=== PATIENT | female | born 1965 ===

== ENCOUNTER 2017-11-25 15:29 | Inpatient (IN) | payer BC ==
--- NOTE | 2017-11-25 16:46 | ED PDOC ---
Arrival/HPI - General Chief Complaint: Shortness Of Breath Time Seen by Provider: 11/25/17 15:35 Historian: Patient - History of Present Illness Narrative History of Present Illness (Text): 11/25/17 16:36 Pt is a 52 year old female with a pmh of asthma, and copd with a significant h/ o sob and chest pain for many weeks. Pt was seen by loader unloader Bruce Francisco today for a VQ scan, LE doppler and chest x-ray which were unremarkable despite continued tachycardia and tachypnea. Was instructed to go to the Emergency department for immediate assessment and echocardiogram. Pt was last admitted to for shortness of breath in [facility] 2.5 months ago and was given IV abx and discharged home; more recently given levaquin for 7 days for bronchitis. Pt describes diffuse chest pain that radiates up into the left shoulder and neck. Denies fever, chills, nausea, vomiting, diarrhea, limb pain, or any other complaints. 11/25/17 21:49 Time/Duration: Prior to Arrival, 4-6 hours Symptom Onset: Gradual Symptom Course: Unchanged, Worsening Quality: Pressure, Tightness Severity Level: 4 Activities at Onset: Rest Context: Sitting, Standing, Home Past Medical History - Provider Review Nursing Documentation Reviewed: Yes - Travel History Have you recently traveled outside [place] w/in the past 3 mons?: No - Infectious Disease Hx of Infectious Diseases: None - Tetanus Immunization Tetanus Immunization: Unknown - Cardiac Hx Hypertension: Yes (during ) - Pulmonary Hx Respiratory Disorders: Yes Hx Asthma: Yes - Neurological Hx Seizures: Yes (as a child) - HEENT Hx HEENT Disorder: No - Renal Hx Renal Disorder: No - Endocrine/Metabolic Hx Endocrine Disorders: No - Hematological/Oncological Hx Blood Disorders: No Hx Blood Transfusions: No Hx Blood Transfusion Reaction: No - Integumentary Hx Dermatological Disorder: No - Musculoskeletal/Rheumatological Hx Musculoskeletal Disorders: No - Gastrointestinal Hx Gastrointestinal Disorders: No - Genitourinary/Gynecological Hx Genitourinary Disorders: No - Psychiatric Hx Depression: No Hx Emotional Abuse: No Hx Physical Abuse: No Hx Substance Use: No - Past Surgical History Past Surgical History: Non-Contributing - Surgical History Hx Section: Yes Hx Orthopedic Surgery: Yes Hx Tubal Ligation: Yes - Anesthesia Hx Anesthesia: Yes Hx Anesthesia Reactions: No Hx Malignant Hyperthermia: No - Suicidal Assessment Feels Threatened In Home Enviroment: No Family/Social History - Physician Review Nursing Documentation Reviewed: Yes Family/Social History: Unknown Family HX Smoking Status: Current Some Days Smoker Hx Alcohol Use: Yes Hx Substance Use: No Hx Substance Use Treatment: No Allergies/Home Meds Allergies/Adverse Reactions: Allergies pollen extracts Allergy (Verified 11/25/17 15:38) URTICARIA Home Medications: Home Meds Medication Instructions Recorded Confirmed Fluticasone/Umeclidin/Vilanter 1 puff NEB DAILY 11/25/17 11/25/17 [Trelegy Ellipta 100-62.5-25] Loratadine [Allerclear] 10 mg PO DAILY 11/25/17 11/25/17 Methylprednisolone [Medrol] 1 tab PO QID 11/25/17 11/25/17 Review of Systems - Physician Review All systems were reviewed & negative as marked: Yes - Review of Systems Systems not reviewed;Unavailable: Unstable Vital Signs Constitutional: Normal, Fatigue Eyes: Normal ENT: Normal Respiratory: SOB Cardiovascular: Chest Pain, Palpitations Gastrointestinal: Normal Genitourinary Female: Normal Musculoskeletal: Normal Skin: Normal Neurological: Normal Endocrine: Normal Hemo/Lymphatic: Normal Psychiatric: Normal Physical Exam Vital Signs Reviewed: Yes Vital Signs Temp Pulse Resp BP Pulse Ox 11/25/17 22:00 75 11/25/17 16:54 87 18 131/74 98 11/25/17 16:16 18 97 11/25/17 15:46 98.5 F 106 H 18 142/82 98 Temperature: Afebrile Blood Pressure: Normal Pulse: Tachycardic Respiratory Rate: Normal Appearance: Positive for: Non-Toxic, Comfortable, Uncomfortable Pain Distress: None Mental Status: Positive for: Alert and Oriented X 3 - Systems Exam Head: Present: Atraumatic, Normocephalic. No: Tenderness, Contusion, Swelling, Ecchymosis, Abrasion, Laceration, Other Pupils: Present: PERRL Extroacular Muscles: Present: EOMI. No: Gaze Palsy, Entrapment, Other Conjunctiva: Present: Normal. No: Injected, Icteric, Other Mouth: Present: Moist Mucous Membranes Neck: Present: Normal Range of Motion Respiratory/Chest: Present: Clear to Auscultation, Good Air Exchange. No: Respiratory Distress, Accessory Muscle Use Cardiovascular: Present: Normal S1, S2, Tachycardic. No: Murmurs Abdomen: Present: Normal Bowel Sounds. No: Tenderness, Distention, Peritoneal Signs Back: Present: Normal Inspection Upper Extremity: Present: Normal Inspection. No: Cyanosis, Edema Lower Extremity: Present: Normal Inspection. No: Edema Neurological: Present: GCS=15, CN II-XII Intact, Speech Normal Skin: Present: Warm, Dry, Normal Color. No: Rashes Psychiatric: Present: Alert, Oriented x 3, Normal Insight, Normal Concentration Medical Decision Making ED Course and Treatment: 11/25/17 16:46 Impression Pt is a 52 year old female with a pmh of asthma, and copd with a significant h/ o sob and chest pain for many weeks. Pt was seen by loader unloader Bruce Francisco today for a VQ scan, LE doppler and chest x-ray which were unremarkable despite continued tachycardia and tachypnea. Was instructed to go to the Emergency department for immediate assessment and echo. On PE, pt is tachycardic with slight hoarseness but able to speak without difficulty; lungs CTAB on ausc.; HR 106; Plan Cardiac and shortness of breath workup Nasal canula and O2 ordered Contact Dr. Barrera before 4:30 Progress Note spoke with Dr. Young and Dr. Barrera who recommended admitting pt for Tele- obs and order echo tomorrow CARDS consult required Code sepsis called: wbc 15.0, Tachy @106 and lactate 4.8 Case MACK Garcia to have pt admitted under tele/obs overnight repeat lactate ordered to ascertain levels; consider Pulmonary hypertension lactate still elevated at 3.2 with unknown source Pt stable and comfortable at this time; awaiting transfer to medicine floor 11/25/17 22:24 - Lab Interpretations Lab Results: 11/25/17 16:30 11/25/17 16:30 Lab Results 11/25/17 16:30: Sodium 140, Chloride 102, Potassium 4.4, Carbon Dioxide 25, Anion Gap 18, BUN 21, Creatinine 0.9, Est GFR ( Amer) > 60, Est GFR (Non- Af Amer) > 60, Random Glucose 331 H* D, Calcium 10.3, Total Bilirubin 0.4, AST 21, ALT 27, Alkaline Phosphatase 59, Lactate Dehydrogenase 362, Total Creatine Kinase 31 L, Troponin I < 0.01, NT-Pro-B Natriuret Pep 56.3, Total Protein 7.1, Albumin 4.0, Globulin 3.1, Albumin/Globulin Ratio 1.3 11/25/17 16:30: pO2 42, VBG pH 7.36, VBG pCO2 42.0, VBG HCO3 23.7, VBG Total CO2 25.0, VBG O2 Sat (Calc) 81.5 H, VBG Base Excess -1.8 L, VBG Potassium 4.5, Sodium 138.0, Chloride 102.0, Glucose 355 H, Lactate 4.8 H*, FiO2 21.0, Venous Blood Potassium 4.5 11/25/17 16:30: PT 11.4, INR 1.00, APTT 22.2 L, D-Dimer, Quantitative < 200 11/25/17 16:30: WBC 15.0 H, RBC 4.75, Hgb 12.8, Hct 40.6, MCV 85.5, MCH 26.9, MCHC 31.5, RDW 18.2 H, Plt Count 253, MPV 10.7, Gran % 84.3 H, Lymph % (Auto) 11.9 L, [place] % (Auto) 3.7, Eos % (Auto) 0.0 L, Baso % (Auto) 0.1, Gran # 12.61 H , Lymph # (Auto) 1.8, [place] # (Auto) 0.6, Eos # (Auto) 0.0, Baso # (Auto) 0.01 11/25/17 14:30: Urine Opiates Screen Negative, Urine Methadone Screen Negative, Ur Barbiturates Screen Negative, Ur Phencyclidine Scrn Negative, Ur Amphetamines Screen Negative, U Benzodiazepines Scrn Negative, U Oth Cocaine Metabols Negative, U Cannabinoids Screen Negative 11/25/17 14:30: Urine Color Yellow, Urine Appearance Clear, Urine pH 6.0, Ur Specific [place] >= 1.030, Urine Protein Negative, Urine Glucose (UA) >=1000, Urine Ketones 15 H, Urine Blood Negative, Urine Nitrate Negative, Urine Bilirubin Negative, Urine Urobilinogen 0.2, Ur Leukocyte Esterase Negative, Urine HCG, Qual Negative - RAD Interpretation Radiology Orders: 11/25/17 15:49 CHEST TWO VIEWS (PA/LAT) [RAD] Stat - EKG Interpretation Interpreted by ED Physician: Yes (Sinus Tach w short [place]; right atrial enlargment ; Rate 106 ) - Medication Orders Current Medication Orders: Albuterol/Ipratropium (Duoneb 3 Mg/0.5 Mg (3 Ml) Ud) 3 ml IH [id number] MARIE Albuterol/Ipratropium (Duoneb 3 Mg/0.5 Mg (3 Ml) Ud) 3 ml IH Q2H PRN PRN Reason: Shortness of Breath Budesonide (Pulmicort Respules) 0.5 mg IH [id number] MAREI Methylprednisolone (Solu-Medrol) 20 mg IVP Q12 MARIE Last Admin: 11/26/17 10:27 Dose: 20 mg IVP Administration Document 11/26/17 10:27 (Rec: 11/26/17 10:27 [id number]) Charges for Administration # of IVP Administrations 1 Discontinued Medications Lactated Ringer's 3,000 ml/ IV (SUPPLIES) 3,000 mls @ 4,800 mls/hr IV ONCE ONE PRN Reason: 60 ML/KG/HR Stop: 11/25/17 17:04 Last Admin: 11/25/17 17:47 Dose: 4,800 mls/hr eMAR Start Stop Document 11/25/17 17:47 EQ (Rec: 11/25/17 17:47 EQ [id number]) Intravenous Solution Start Date 11/25/17 Start Time 17:47 Vancomycin HCl (Vancomycin 1gm) 1 gm in 250 mls @ 167 mls/hr IVPB STAT STA PRN Reason: Protocol Stop: 11/25/17 18:32 Last Admin: 11/25/17 20:30 Dose: 167 mls/hr eMAR Start Stop Document 11/25/17 20:30 JOL (Rec: 11/25/17 23:24 JOL [id number]) Intravenous Solution Start Date 11/25/17 Start Time 20:30 End Date 11/25/17 End time 22:00 Total Infusion Time 90 Piperacillin Sod/Tazobactam Sod (Zosyn 3.375 In Ns 100ml) 100 mls @ 200 mls/hr IVPB STAT STA PRN Reason: Protocol Stop: 11/25/17 17:32 Last Admin: 11/25/17 17:47 Dose: 200 mls/hr eMAR Start Stop Document 11/25/17 17:47 EQ (Rec: 11/25/17 17:47 EQ [id number]) Intravenous Solution Start Date 11/25/17 Start Time 17:47 Disposition/Present on Arrival - Present on Arrival Any Indicators Present on Arrival: Yes History of DVT/PE: No History of Uncontrolled Diabetes: No Urinary Catheter: No History of Decub. Ulcer: No History Surgical Site Infection Following: None - Disposition Have Diagnosis and Disposition been Completed?: Yes Diagnosis: Sepsis, Shortness of breath Disposition: HOSPITALIZED Disposition Time: 20:00 Patient Plan: Admission Patient Problems: Current Active Problems Problem Status Onset Sepsis Acute Shortness of breath Acute Condition: STABLE
[2017-11-25 16:50] LABS: BASO # 0.01 K/mm3 (0.0-2.0); BASO % 0.1 % (0.0-3.0); GRAN # 12.61 (1.4-6.5); GRAN % 84.3 % (50.0-68.0); HEMOGLOBIN 12.8 g/dL (12.0-16.0); LYMPH # 1.8 (1.2-3.4); LYMPH % 11.9 % (22.0-35.0); MEAN CELL VOLUME 85.5 fl (80.0-105.0); MEAN CORPUSCULAR HEMOGLOBIN 26.9 pg (25.0-35.0); MEAN CORPUSCULAR HGB CONC 31.5 g/dl (31.0-37.0); MEAN PLATELET VOLUME 10.7 fl (7.0-11.0); MONO # 0.6 (0.1-0.6); MONO % 3.7 % (1.0-6.0); RBC 4.75 10^6/uL (3.5-6.1); RED CELL DISTRIBUTION WIDTH 18.2 % (11.5-14.5)
[2017-11-25 16:54] LABS: VENOUS BLOOD GAS BASE EXCESS -1.8 mmol/L (0.0-2.0); VENOUS BLOOD GAS PO2 42 mm/Hg (30-55); VENOUS BLOOD PH 7.36 (7.32-7.43)
[2017-11-25] MEDS ORDERED: Vancomycin 1gm in NS 250ml 1 GM/250 ML BAG IVPB STA (17:03)
[2017-11-25] MEDS ORDERED: Piperacillin/Tazobact 3.375 gm 100 ML IVPB STA (17:03)
[2017-11-25 17:04] LABS: PARTIAL THROMBOPLASTIN TIME 22.2 Seconds (25.1-36.5); PROTHROMBIN TIME 11.4 SECONDS (9.4-12.5)
[2017-11-25 17:07] LABS: ALB/GLOB RATIO 1.3 (1.1-1.8); ALT/SGPT 27 U/L (7-56); AST/SGOT 21 U/L (14-36); BLOOD UREA NITROGEN 21 mg/dL (7-21); CALCIUM 10.3 mg/dL (8.4-10.5); GFR AFRICAN-AMERICAN > 60; GFR NON-AFRICAN AMERICAN > 60
[2017-11-25 17:11] LABS: B-TYPE NATRIURETIC PEPTIDE 56.3 pg/mL (0-450); TROPONIN I < 0.01 ng/mL
[2017-11-25 17:44] LABS: URINE BILIRUBIN NEGATIVE (NEGATIVE); URINE BLOOD NEGATIVE (NEGATIVE); URINE GLUCOSE (UA) >=1000 mg/dL (NEGATIVE); URINE LEUKOCYTE ESTERASE NEGATIVE Leu/uL (NEGATIVE); URINE PROTEIN NEGATIVE mg/dL (<30 mg/dL); URINE UROBILINOGEN 0.2 E.U./dL (<1 E.U./dL)
[2017-11-25 17:46] LABS: HCG,QUALITATIVE URINE NEGATIVE (NEGATIVE); URINE APPEARANCE CLEAR (CLEAR); URINE COLOR YELLOW (YELLOW)
[2017-11-25 17:54] LABS: BARBITURATES, UR NEGATIVE (NEGATIVE); BENZODIAZEPINES, UR NEGATIVE (NEGATIVE); OPIATES, UR NEGATIVE (NEGATIVE); PHENCYCLIDINE, UR NEGATIVE (NEGATIVE)
[2017-11-25 18:22] LABS: D DIMER < 200 ng/mL (0-243)
[2017-11-25 19:08] LABS: VENOUS BLOOD GAS BASE EXCESS -0.4 mmol/L (0.0-2.0); VENOUS BLOOD GAS PO2 35 mm/Hg (30-55); VENOUS BLOOD PH 7.38 (7.32-7.43)
[2017-11-26 00:17] VITALS: BMI 26.7
[2017-11-26] MEDS ORDERED: Albuterol-Ipratrop 3 mg / 0.5 (3 ml) UD IH PRN (06:32)
--- NOTE | 2017-11-26 09:18 | RAD ---
HISTORY: sob COMPARISON: 11/15/2016 TECHNIQUE: Chest PA and lateral FINDINGS: LUNGS: No active pulmonary disease. PLEURA: No significant pleural effusion identified. No pneumothorax apparent. CARDIOVASCULAR: Normal. OSSEOUS STRUCTURES: No significant abnormalities. VISUALIZED UPPER ABDOMEN: Normal. OTHER FINDINGS: None. IMPRESSION: No active disease.
[2017-11-26] MEDS: MethylPREDNISolone 40 mg Vial IVP SCH ×2 (10:27→21:38)
--- NOTE | 2017-11-26 10:45 | CARD ---
APPROVED REPORT EKG Measurement Heart [id number] <Conclusion> Sinus tachycardia with short CT Right atrial enlargement LVH by voltage No change except the rate is faster
[2017-11-26] MEDS: Albuterol-Ipratrop 3 mg / 0.5 (3 ml) UD IH SCH ×2 (13:58→20:00)
--- NOTE | 2017-11-26 15:25 | CON ---
DATE: 11/26/2017 PULMONARY CONSULTATION REASON FOR CONSULTATION: Asthma. REFERRING PHYSICIAN: Jakub Garcia JD/ . HISTORY OF PRESENT ILLNESS: The patient is a 52-year-old female, with past medical history significant for asthma, chronic obstructive pulmonary disease, who presents to [facility] with worsening chest discomfort for the past few days. In addition to the chest discomfort, the patient also complains of bilateral hip discomfort, back and neck discomfort, shoulder and abdominal discomfort. It does appear that the chest discomfort does worsens with coughing. The patient was thus admitted for additional evaluation. The patient is not short of breath at rest. She does state to some mild dyspnea on exertion. She also states to a minimal cough with no sputum production. As above, the patient does present with chest discomfort. Again, the chest discomfort is certainly precipitated with coughing. There is no history of coughing up of blood. There is no history of chest discomfort - made worse with deep respirations. There is no history of temperatures, chills or infectious exposure. There is no history of night sweats, weight loss or appetite change prior to the above events. No history of leg or calf pains. No history of syncope or diaphoresis. No history of recent travel or trauma. REVIEW OF SYSTEMS: No history of nausea, vomiting or diarrhea. No acute urinary symptoms. No new neurologic complaints. Rest of the review of systems is negative. ALLERGY: ALLERGIES ARE TO POLLEN EXTRACTS. SOCIAL HISTORY: Positive for tobacco. Negative for alcohol. FAMILY HISTORY: No inheritable diseases. HOME MEDICATIONS: Include loratadine, and Medrol. PHYSICAL EXAMINATION: GENERAL: The patient appears quite comfortable this morning. She is not short of breath at rest. VITAL SIGNS: Temperature is 98.2, pulse 64, respirations 16/18, blood pressure 137/78. Oxygen saturation on nasal cannula is 98-99%. HEENT: Normocephalic, atraumatic. No JVD. CARDIOVASCULAR: Positive S1, S2. No S3 gallop. LUNGS: Decreased breath sounds at the bases. Mild rhonchi. No wheezing. EXTREMITIES: No clubbing, cyanosis or edema. Calves are nontender to palpation. GI: Abdomen is soft, nontender and nondistended. Bowel sounds are positive. SKIN: No acute rash. NEUROLOGIC: Limited at the present time. PERTINENT LABORATORY DATA: Chest x-ray was done and reviewed. There is a very small linear scar noted at the right lung base. Otherwise, I do not appreciate any new or significant changes. Official results are pending. A ventilation-perfusion scan was done. The ventilation-perfusion scan is negative for pulmonary embolism. Doppler ultrasound was also done of the lower extremities. There is no sonographic evidence for deep venous thrombosis. CBC: White count 15.0, hemoglobin 12.8, hematocrit 40.6, platelets of 253,000. D-dimer is negative - less than 200. Complete metabolic profile: Glucose 331. Rest of the metabolic profiles within normal limits. IMPRESSION: 1. Recurrent bronchitis. 2. Asthma. 3. Chronic obstructive pulmonary disease. 4. Chest discomfort/diffuse body aches. 5. Mild leukocytosis. PLAN: I did discuss the case with the night nurse at length. I have also reviewed the chart at length, and discussed the case with the patient at length. The patient presents to [facility] with main complaint of increasing chest discomfort for the past few days. In addition to her chest discomfort, the patient also complains of discomfort in her hips, back, shoulders and neck. As above, the patient does admit that the chest discomfort is made worse with coughing. On physical exam, there is mild bronchospasm noted. I will start the patient on DuoNeb treatments, inhaled steroids and low-dose intravenous steroids. The patient was on Medrol at home. The patient does have a history of recurrent bronchitis over the past few months and has been on multiple courses of antibiotics. I will hold off on additional antibiotic therapy at this point in time. I did review the chest x-ray as above. Other than a small linear scar at the right lung base, I do not appreciate any significant abnormalities. Again, official results are pending. I have also reviewed the ventilation-perfusion scan and the leg studies. Both of these exams are normal. In addition, the D-dimer is also negative. The above data certainly points away from acute pulmonary embolism. I have also reviewed the laboratory data. There is a mild leukocytosis present. However, the patient is on Medrol at home. There is no history of temperatures. Lastly, the patient does have a mild rise in the lactate - on venous blood gas. This may be due to respiratory muscle fatigue, and not necessarily due to sepsis. Again, the patient appears quite comfortable this morning. She is feeling much better. Cardiology evaluation with Dr. Christiansen has been ordered. Additional pulmonary intervention will be based on the clinical status of the patient. I will discuss the above with Dr. Garcia this morning. Thank you very much for this pulmonary consultation. Manas Ruelas MD MTDHerbert
--- NOTE | 2017-11-26 16:21 | CARD ---
APPROVED REPORT EXAM: Two-dimensional and M-mode echocardiogram with Doppler and color Doppler. INDICATION Dyspnea LV Function:SystolicDiastolic RVSP 2D DIMENSIONS Left Atrium (2D)4.2 (1.6-4.0cm)IVSd1.0 (0.7-1.1cm) LVDd4.5 (3.9-5.9cm)PWd1.0 (0.7-1.1cm) LVDs2.8 (2.5-4.0cm)FS (%) 37.9 % LVEF (%)68.1 (>50%) M-Mode DIMENSIONS Aortic Root2.70 (2.2-3.7cm)Aortic Cusp Exc.1.70 (1.5-2.0cm) Aortic Valve AoV Peak Rzsumpic786.0cm/sAoV VTI39.9cmAO Peak GR.17mmHg LVOT Peak Eoucoxxt792.0cm/sLVOT VTI33.40cmAO Mean GR.9mmHg Mitral Valve MV E Tsyzosqu226.0cm/sMV A Rxedirpj72.5cm/sE/A ratio1.3 TDI Lateral E' Peak V12.60cm/sMedial E' Peak V6.73cm/sE/Lateral E'9.5 E/Medial E'17.8 Pulmonary Valve PV Peak Thhqmjjj86.7cm/sPV Peak Grad.3mmHg Tricuspid Valve TR Peak Ppapjfbn024rk/sRAP [id number] Peak Gr.31mmHg [id number] LEFT VENTRICLE The left ventricle is normal size. There is normal left ventricular wall thickness. The left ventricular function is normal. The left ventricular ejection fraction is within the normal range. LV Ej.FR Normal 68%. There is normal LV segmental wall motion. RIGHT VENTRICLE The right ventricle is normal size. There is normal right ventricular wall thickness. The right ventricular systolic function is normal. RVSP: 41mm Hg. Mild Pulmonary Hypertension. ATRIA The left atrium is mildly dilated. The right atrium size is normal. The interatrial septum is intact with no evidence for an atrial septal defect. AORTIC VALVE The aortic valve is normal in structure. MITRAL VALVE The mitral valve is normal in structure. Mitral regurgitation is trace. TRICUSPID VALVE The tricuspid valve is normal in structure. There is mild tricuspid regurgitation. RVSP: 41mm Hg. Mild Pulmonary Hypertension. PERICARDIAL EFFUSION There is no pericardial effusion. <Conclusion> The left ventricle is normal size. There is normal left ventricular wall thickness. The left ventricular function is normal. The left ventricular ejection fraction is within the normal range. The left ventricular function is normal. The left ventricular ejection fraction is within the normal range. LV Ej.FR Normal 68%. There is normal LV segmental wall motion. The right ventricle is normal size. There is normal right ventricular wall thickness. The right ventricular systolic function is normal. RVSP: 41mm Hg. Mild Pulmonary Hypertension. The left atrium is mildly dilated. The right atrium size is normal. The interatrial septum is intact with no evidence for an atrial septal defect. The aortic valve is normal in structure. Mitral regurgitation is trace. The mitral valve is normal in structure. There is mild tricuspid regurgitation. RVSP: 41mm Hg. Mild Pulmonary Hypertension. There is no pericardial effusion.
[2017-11-26] MEDS: Budesonide 0.5 mg/2 ml Inhal Susp UD IH SCH (19:59)
--- NOTE | 2017-11-26 21:01 | HP ---
HISTORY OF PRESENT ILLNESS: The patient is a 52-year-old female admitted through the emergency department on 11/25/2017 after being referred by her range conservationist, Dr. Barrera for a ventilation-perfusion scan and Doppler of the lower extremities for the patient's complaint of increasing shortness of breath. The patient describes a chest discomfort that radiates to her left shoulder and neck. She denies any fever, chills, nausea, vomiting or diarrhea. PAST MEDICAL HISTORY: Includes asthma. There is a history of gestational diabetes, history of possible polycystic ovarian disease. PAST SURGICAL HISTORY: Status post x2. CURRENT MEDICATIONS: Include Pulmicort Respules, loratadine 10 mg daily, Ellipta 100/62.5/25, and the patient had been on Medrol Dosepak prior to admission. ALLERGIES: INCLUDE POSSIBLE ALLERGIES TO POLLEN WITH URTICARIA. SOCIAL HISTORY: The patient denies alcohol, tobacco or drug use. REVIEW OF SYSTEMS: Essentially as above. PHYSICAL EXAMINATION: GENERAL: The patient is a well-developed, mildly obese female, in no acute distress. VITAL SIGNS: Blood pressure 134/67, temperature 98.6, pulse 76, respiratory rate 21. HEENT: Head is normocephalic, atraumatic. Pupils equal, round, reactive to light. Extraocular movements intact. NECK: Supple, no thyromegaly, no carotid bruits. LUNGS: Clear. ABDOMEN: Soft, nontender. Bowel sounds are normoactive. EXTREMITIES: Without cyanosis, clubbing or edema. NEUROLOGIC: The patient is awake and oriented x3 without focal sensory or motor deficits. SKIN: Warm and dry. LABORATORY DATA: WBC is 15.0, hemoglobin 12.8, hematocrit 40.6. Sodium 140, potassium 4.4, chloride 102, CO2 of 25, BUN 21, creatinine 0.9, glucose 331. CPK is 31. Troponin is less than 0.01. BNP is 56.3. Chest x-ray shows no active disease. IMPRESSION: 1. Exacerbation of asthma. 2. Hyperglycemia, probably secondary to steroids. 3. Leukocytosis probably secondary to steroids. PLAN: Cardiology consultation has been called with Dr. Valera/[facility] to evaluate the patient for chest pain. The patient has been seen in consultation by her range conservationist, Dr. Ruelas. She has been started on IV Solu-Medrol as well as nebulizer treatments. We will monitor for signs and symptoms of any infections. Social work for discharge planning. DAMION Olivo MD
[2017-11-26] MEDS: Insulin Reg-LOW-Coverage SC SCH (21:34)
[2017-11-27] MEDS: Albuterol-Ipratrop 3 mg / 0.5 (3 ml) UD IH SCH ×4 (01:44→19:42)
--- NOTE | 2017-11-27 04:05 | CON ---
DATE: 11/26/2017 LOCATION: Room 268, bed 2. REASON FOR CONSULTATION: Shortness of breath. HISTORY OF PRESENT ILLNESS: Patient is a 52-year-old female who was admitted with a history that she was recently diagnosed with COPD, bronchitis, and asthma roughly in June 2017. She sees Dr. Barrera. She states that in last few months, she had repeated episodes of bronchitis with cough and shortness of breath. Sometimes with the cough she gets chest discomfort. Patient complains of shortness of breath on minimal exertion. Denies any prior history of [place] or anginal symptoms. Patient was told she has borderline blood sugar, borderline blood pressure, but no medications were given. Sometimes when she walks, she feels that her heartbeat is fast. PERSONAL HISTORY: Used to smoke half pack a day, stopped one month ago. Drinks socially. ALLERGIES: PATIENT IS ALLERGIC TO SEASONAL ALLERGIES, BUT NO ALLERGY TO ANY MEDICATIONS. FAMILY HISTORY: Positive for diabetes, hypertension, coronary artery disease. PAST SURGICAL HISTORY: Patient had two C-sections, tubal ligation, and ankle surgery. MEDICATIONS: Patient's home medications included loratadine 10 mg daily, inhaler, Medrol 1 tablet p.o. 4 times a day. PHYSICAL EXAMINATION: VITAL SIGNS: Blood pressure 134/67. Patient's blood pressure is taken in 3 positions. Lying down 128/65, sitting 131/77, and standing 125/69, so no evidence of postural hypotension. Respirations 20, pulse 76, temperature 98.6. HEENT: Head is normocephalic. Eyes: Pupils normal. Conjunctivae normal. Nose and throat normal. NECK: JVP low. Carotids equal. THORAX: AP diameter normal. LUNGS: No rales. Few wheezing sounds heard. CARDIOVASCULAR: S1 and S2. No rub. ABDOMEN: Protuberant. No organomegaly. EXTREMITIES: No clubbing. No cyanosis. LABORATORY DATA: WBC 15.0, hemoglobin 12.8, hematocrit 40.6, platelets 253. Sodium 140, potassium 4.4, BUN 21, creatinine 0.9, random glucose 331, repeat glucose 84. Calcium, AST, ALT normal. Troponin less than 0.01. Total protein, albumin normal. Prothrombin time 11.4 with INR of 1.0, PTT 22.2, D-dimer less than 200. Chest x-ray, no significant abnormality. EKG showed sinus tachycardia, P-pulmonale. Patient had echo today. It showed chamber sizes are normal except left atrium which is only minimally enlarged. LV contractility is normal with ejection fraction of 68%. RSVP was 41 mmHg which is suggestive of mild pulmonary hypertension, mild tricuspid regurgitation noted, and trace mitral regurgitation noted. RV size was normal. RA size was normal. RV contractility was normal. DIAGNOSES: Chronic obstructive pulmonary disease, acute exacerbation, recurrent bronchitis, history of asthma, chest discomfort on cough, probably musculoskeletal, no clinical evidence of angina at this moment, diabetes mellitus, obesity. PLAN: Patient was already seen by Pulmonary, Dr. Ruelas, already started therapy including methylprednisolone 20 mg IV q. 12 hours and nebulizer therapy. We will continue monitoring the patient and will do IV Lexiscan stress test on Wednesday because patient has a history of previous smoking and elevated sugar and questionable history of blood pressure and obesity. Patient has risk for coronary artery disease. Advised patient to lose weight. We will follow. Ernestine Valera MD
[2017-11-27] MEDS: Insulin Reg-LOW-Coverage SC SCH ×4 (08:17→22:21)
[2017-11-27] MEDS: MethylPREDNISolone 40 mg Vial IVP SCH (09:37)
[2017-11-27] MEDS: Budesonide 0.5 mg/2 ml Inhal Susp UD IH SCH ×2 (09:49→19:43)
--- NOTE | 2017-11-27 11:53 | CP.PCM.PN ---
Subjective - Date & Time of Evaluation Date of Evaluation: 11/27/17 Time of Evaluation: 11:30 - Subjective Subjective: c/o some dyspnea on exertion, no chest pain Objective - Vital Signs/Intake and Output Vital Signs (last 24 hours): Temp Pulse Resp BP Pulse Ox 98.5 F 60 18 150/83 96 11/27/17 11:49 11/27/17 11:49 11/27/17 11:49 11/27/17 11:49 11/27/17 05:56 Intake and Output: 11/27/17 11/27/17 06:59 18:59 Intake Total 120 Balance 120 - Medications Medications: Current Medications Albuterol/Ipratropium (Duoneb 3 Mg/0.5 Mg (3 Ml) Ud) 3 ml IH [id number] [facility] Last Admin: 11/27/17 09:49 Dose: 3 ml Albuterol/Ipratropium (Duoneb 3 Mg/0.5 Mg (3 Ml) Ud) 3 ml IH Q2H PRN PRN Reason: Shortness of Breath Budesonide (Pulmicort Respules) 0.5 mg IH [id number] [facility] Last Admin: 11/27/17 09:49 Dose: 0.5 mg Insulin Human Regular (Humulin R Low) 0 units SC ACHS [facility] PRN Reason: Protocol Last Admin: 11/27/17 08:17 Dose: 1 units Methylprednisolone (Medrol) 12 mg PO BID [facility] - Labs Labs: PT 11.4 SECONDS (9.4-12.5) 11/25/17 16:30 INR 1.00 (0.93-1.08) 11/25/17 16:30 APTT 22.2 Seconds (25.1-36.5) L 11/25/17 16:30 - Respiratory Exam Respiratory Exam: Clear to Ausculation Bilateral, NORMAL BREATHING PATTERN - Cardiovascular Exam Cardiovascular Exam: REGULAR RHYTHM - GI/Abdominal Exam GI & Abdominal Exam: Soft, Normal Bowel Sounds - Extremities Exam Extremities Exam: Normal Inspection - Neurological Exam Neurological Exam: Alert, Awake - Skin Skin Exam: Dry, Warm Assessment and Plan (1) Asthma Status: Acute (2) Hyperglycemia Status: Acute - Assessment and Plan (Free Text) Plan: continue pulmonary follow-up, cardiology consult appreciated, for possible stress test Wednesday, continue insulin coverage
--- NOTE | 2017-11-27 13:03 | PN ---
DATE: 11/27/2017 PULMONARY PROGRESS NOTE SUBJECTIVE: Anai still feels tightness and shortness of breath despite no evidence of wheezing at this time. Her COPD is under good control. She has no further wheezing, but she remained short of breath with respiratory insufficiency. I have noted the echocardiogram, which shows an RVSP of 41 mmHg. This is consistent with mild to moderate pulmonary hypertension. The patient is currently awaiting Lexiscan on Wednesday and she is on COPD medications and steroids from which can be decreased. Her corticosteroids are contributing to her diabetes mellitus. OBJECTIVE: VITAL SIGNS: Stable. She is afebrile. She is 98.6, respiratory rate of 16, pulse of 60, blood pressure 138/78 and O2 sat 99% on supplemental oxygen. HEENT: Normocephalic, atraumatic. No JVD. No lymphadenopathy. No bruit. CARDIOVASCULAR: Regular rhythm. S1 and S2 without murmur, gallop or rub. LUNGS: Global decrease in breath sounds. No rales, rhonchi or wheezes at this time. ABDOMEN: Soft, protuberant. Bowel sounds normoactive. EXTREMITIES: Reveal no clubbing, cyanosis or edema. There is no Homans' sign. SKIN: No rash or excoriation. NEUROLOGIC: Normal. PERTINENT LABORATORY STUDIES: Chest x-ray was negative. As discussed above, ventilation perfusion scan was negative. Bilateral venous Dopplers were negative. The echocardiogram showed an RVSP of 41 mmHg consistent with [id number] pulmonary hypertension. IMPRESSION: 1. Respiratory insufficiency. 2. History of asthma and air trapping consistent with chronic obstructive pulmonary disease. This is stable at this time. 3. Clinical overweight status. 4. Diabetes mellitus. 5. Mild to moderate pulmonary hypertension. As we are all aware and elevated RVSP on echocardiogram may certainly underestimate the degree of pulmonary hypertension. It is not sufficient to state that an RVSP of 41 is mild. The patient will require a right heart catheterization to see the exact PA pressures. Although the COPD and obesity can be contributing to her shortness of breath, it is extremely important to make sure that this pulmonary hypertension is documented. If so, the patient will require medical therapy as early intervention and pulmonary hypertension has been shown to improve long-term survival and improve his clinical status. PLAN: Will await the Lexiscan from Wednesday. Decrease the corticosteroids. Continue vigorous attention to the patient's status. We will discuss with Cardiology, the need for a right heart catheterization is real and should be done at the earliest possible time. Pulmonary hypertension can certainly be responsible for the symptoms that this patient describes. We will follow closely with you and decide the need for further intervention after the above tests are completed. I have discussed these problems with the patient and she is aware. We will discuss with my associate, Dr. Ruelas on Wednesday when he takes over further care of the patient. Cardiology will be contacted with regards to my suggestions stated above. Thank you for the opportunity to care for this ashlee patient. Lewis Barrera MD
[2017-11-28] MEDS: Albuterol-Ipratrop 3 mg / 0.5 (3 ml) UD IH SCH ×4 (01:22→21:00)
[2017-11-28] MEDS: Budesonide 0.5 mg/2 ml Inhal Susp UD IH SCH ×2 (07:43→21:00)
[2017-11-28] MEDS: Insulin Reg-LOW-Coverage SC SCH ×4 (07:55→21:22)
--- NOTE | 2017-11-28 11:06 | CP.PCM.PN ---
Subjective - Date & Time of Evaluation Date of Evaluation: 11/28/17 Time of Evaluation: 10:45 - Subjective Subjective: c/o some chest tightness and wheezing this am, otherwise NAD Objective - Vital Signs/Intake and Output Vital Signs (last 24 hours): Temp Pulse Resp BP Pulse Ox 97.9 F 60 20 136/78 97 11/28/17 06:00 11/28/17 06:00 11/28/17 06:00 11/28/17 06:00 11/28/17 06:00 Intake and Output: 11/28/17 11/28/17 06:59 18:59 Intake Total 120 Output Total 0 Balance 120 - Medications Medications: Current Medications Albuterol/Ipratropium (Duoneb 3 Mg/0.5 Mg (3 Ml) Ud) 3 ml IH [id number] [facility] Last Admin: 11/28/17 07:43 Dose: 3 ml Albuterol/Ipratropium (Duoneb 3 Mg/0.5 Mg (3 Ml) Ud) 3 ml IH Q2H PRN PRN Reason: Shortness of Breath Budesonide (Pulmicort Respules) 0.5 mg IH [id number] [facility] Last Admin: 11/27/17 19:43 Dose: 0.5 mg Insulin Human Regular (Humulin R Low) 0 units SC ACHS [facility] PRN Reason: Protocol Last Admin: 11/28/17 07:55 Dose: Not Given Methylprednisolone (Medrol) 12 mg PO BID [facility] Last Admin: 11/28/17 10:38 Dose: 12 mg - Labs Labs: PT 11.4 SECONDS (9.4-12.5) 11/25/17 16:30 INR 1.00 (0.93-1.08) 11/25/17 16:30 APTT 22.2 Seconds (25.1-36.5) L 11/25/17 16:30 - Respiratory Exam Respiratory Exam: Wheezes - Cardiovascular Exam Cardiovascular Exam: REGULAR RHYTHM - GI/Abdominal Exam GI & Abdominal Exam: Soft, Normal Bowel Sounds - Extremities Exam Extremities Exam: Normal Inspection - Neurological Exam Neurological Exam: Alert, Awake - Skin Skin Exam: Dry, Warm Assessment and Plan (1) Asthma Status: Acute (2) Hyperglycemia Status: Acute - Assessment and Plan (Free Text) Plan: continue pulm and cardio follow-up, taper steroids, nebulizer tx, for stress test, possible R heart cath to r/o pulm HTN
[2017-11-29] MEDS: Albuterol-Ipratrop 3 mg / 0.5 (3 ml) UD IH SCH ×5 (03:00→20:55)
--- NOTE | 2017-11-29 07:20 | PN ---
DATE: 11/29/2017 PULMONARY NOTE SUBJECTIVE: The patient appears very comfortable this morning. She is not short of breath at rest. PHYSICAL EXAMINATION: VITAL SIGNS: Temperature is 98.8, pulse 66, respirations 18, blood pressure 121/68. Oxygen saturation on nasal cannula is 97%. HEENT: Normocephalic, atraumatic. NECK: No JVD. CARDIOVASCULAR: Positive S1, S2. No S3 gallop. LUNGS: Clear bilaterally. EXTREMITIES: No clubbing, cyanosis or edema. Calves are nontender to palpation. GI: Abdomen is soft, nontender and nondistended. Bowel sounds are positive. SKIN: No acute rash. NEUROLOGIC: Exam limited at the present time. IMPRESSION: 1. Recurrent bronchitis. 2. Asthma. 3. Chronic obstructive pulmonary disease. 4. Chest discomfort/diffuse body aches -resolving. 5. Mild leukocytosis. PLAN: The patient appears very comfortable this morning. She is not short of breath at rest. She states to much less chest discomfort. She does state to feeling much better overall. On physical exam, her lungs are now clear. In addition, there is no significant alveolar-arterial gradient. I will continue the current nebulizer treatments and oral steroids (changed over the weekend) for now. Cardiology evaluation is ongoing. Input by Dr. Valera is noted. The patient is for cardiac stress test today. Clinical status of the patient is significantly improved. I will discuss the above with Dr. Garcia. Manas Ruelas MD MTDHerbert
[2017-11-29] MEDS: Budesonide 0.5 mg/2 ml Inhal Susp UD IH SCH ×2 (07:54→20:55)
[2017-11-29] MEDS: Insulin Reg-LOW-Coverage SC SCH ×4 (08:29→22:11)
--- NOTE | 2017-11-29 08:44 | CP.PCM.PN ---
Subjective - Date & Time of Evaluation Date of Evaluation: 11/29/17 Time of Evaluation: 06:55 - Subjective Subjective: Seen and examined by me and Dr. Christiansen Reason for consult and follow up:shortness of breath, COPD, smoker, obesity Subjective: lying in bed, denies chest pain and shortness of breath, claimed to be hungry Objective - Vital Signs/Intake and Output Vital Signs (last 24 hours): Temp Pulse Resp BP Pulse Ox 98.8 F 66 20 121/68 97 11/29/17 06:00 11/29/17 06:00 11/29/17 06:00 11/29/17 06:00 11/29/17 06:00 Intake and Output: 11/29/17 11/29/17 06:59 18:59 Intake Total 0 Output Total 0 Balance 0 - Medications Medications: Current Medications Albuterol/Ipratropium (Duoneb 3 Mg/0.5 Mg (3 Ml) Ud) 3 ml IH [id number] [facility] Last Admin: 11/29/17 07:54 Dose: 3 ml Albuterol/Ipratropium (Duoneb 3 Mg/0.5 Mg (3 Ml) Ud) 3 ml IH Q2H PRN PRN Reason: Shortness of Breath Budesonide (Pulmicort Respules) 0.5 mg IH [id number] [facility] Last Admin: 11/29/17 07:54 Dose: 0.5 mg Insulin Human Regular (Humulin R Low) 0 units SC ACHS [facility] PRN Reason: Protocol Last Admin: 11/29/17 08:29 Dose: Not Given Methylprednisolone (Medrol) 12 mg PO BID [facility] Last Admin: 11/28/17 18:06 Dose: 12 mg - Labs Labs: PT 11.4 SECONDS (9.4-12.5) 11/25/17 16:30 INR 1.00 (0.93-1.08) 11/25/17 16:30 APTT 22.2 Seconds (25.1-36.5) L 11/25/17 16:30 - Constitutional Appears: Well, No Acute Distress - Head Exam Head Exam: NORMAL INSPECTION - Eye Exam Eye Exam: Normal appearance Pupil Exam: NORMAL ACCOMODATION - ENT Exam ENT Exam: Mucous Membranes Moist - Neck Exam Neck Exam: Normal Inspection - Respiratory Exam Respiratory Exam: Clear to Ausculation Bilateral, NORMAL BREATHING PATTERN - Cardiovascular Exam Cardiovascular Exam: REGULAR RHYTHM, +S1, +S2 - GI/Abdominal Exam GI & Abdominal Exam: Soft, Normal Bowel Sounds - Extremities Exam Extremities Exam: Full ROM, Normal Capillary Refill - Neurological Exam Neurological Exam: Alert, Awake, Oriented x3 - Psychiatric Exam Psychiatric exam: Anxious, Normal Affect, Normal Mood - Skin Skin Exam: Dry, Intact, Normal Color, Warm Assessment and Plan - Assessment and Plan (Free Text) Assessment: IMPRESSION: shortness of breath, COPD, smoker, obesity. She claimed that she had repeated episodes of bronchitis in the last few months. With cough she had chest pains. She has shortness of breath with minimal exertion. Plan: Kept NPO For Stress test today to evaluate cardiac function Verbalized to be nervous- reassured Continue current medications Blood pressure and heart rate stable Life style modifications Will follow up Plan and treatment discussed with Dr. Christiansen
--- NOTE | 2017-11-29 09:33 | PN ---
DATE: 11/28/2017 PULMONARY PROGRESS NOTE LOCATION: Room 268, bed 2. SUBJECTIVE: The patient is feeling better; however, she did have an episode of wheezing earlier today, this responded to inhaled rescue bronchodilator treatment. Overall, she is doing better. The corticosteroids were decreased yesterday and this may be the reason for her episode of bronchospasm. The remainder of the workup is still pending at this time. OBJECTIVE VITAL SIGNS: Stable. She is afebrile. Respiratory rate of 16, heart rate 60, blood pressure 140/78, and O2 saturation 99% on room air. HEENT: Normocephalic, atraumatic. No JVD. No lymphadenopathy. No bruit. CARDIOVASCULAR: Regular rhythm. S1 and S2 without murmur, gallop or rub. CHEST: Minimal scattered wheeze noted this morning, prolonged expiratory phase. ABDOMEN: Soft. Bowel sounds normoactive. EXTREMITIES: Reveal no clubbing, cyanosis or edema. No Kaity sign. SKIN: Warm. No rash or excoriation. NEUROLOGIC: No focal findings. PERTINENT LABORATORY DATA: No new vascular studies were done today. IMPRESSION 1. Respiratory insufficiency. 2. History of chronic obstructive pulmonary disease. 3. Acute bronchospasm, today resolved with inhaled bronchodilators. 4. Overweight status. 5. Diabetes mellitus. 6. Sorm-bs-kwiahoww pulmonary hypertension. PLAN: Awaiting Lexiscan in the morning. Strongly suggest right heart catheterization prior to discharge. Should the patient require pulmonary hypertension medications, this is essential in obtaining pharmacologic interventions. The corticosteroids were decreased yesterday, we will follow again and decide if this can be decreased in the morning. This is to done to help treat the diabetes mellitus at this time. Yesterday, there was no wheezing. There were only minimal wheezes noted this morning. Close followup is essential. We will discuss with Dr. Ruelas. We will follow up in the morning. Lewis Barrera MD
[2017-11-29] MEDS ORDERED: Aminophylline 25 mg/ml Inj ONE (11:09)
--- NOTE | 2017-11-29 12:23 | CP.PCM.PN ---
Subjective - Date & Time of Evaluation Date of Evaluation: 11/29/17 Time of Evaluation: 09:30 - Subjective Subjective: feels better this am, no chest pain, no SOB Objective - Vital Signs/Intake and Output Vital Signs (last 24 hours): Temp Pulse Resp BP Pulse Ox 98.8 F 66 20 121/68 97 11/29/17 06:00 11/29/17 06:00 11/29/17 06:00 11/29/17 06:00 11/29/17 06:00 Intake and Output: 11/29/17 11/29/17 06:59 18:59 Intake Total 0 Output Total 0 Balance 0 - Medications Medications: Current Medications Albuterol/Ipratropium (Duoneb 3 Mg/0.5 Mg (3 Ml) Ud) 3 ml IH [id number] [facility] Last Admin: 11/29/17 07:54 Dose: 3 ml Albuterol/Ipratropium (Duoneb 3 Mg/0.5 Mg (3 Ml) Ud) 3 ml IH Q2H PRN PRN Reason: Shortness of Breath Budesonide (Pulmicort Respules) 0.5 mg IH [id number] [facility] Last Admin: 11/29/17 07:54 Dose: 0.5 mg Insulin Human Regular (Humulin R Low) 0 units SC ACHS [facility] PRN Reason: Protocol Last Admin: 11/29/17 11:07 Dose: Not Given Methylprednisolone (Medrol) 12 mg PO BID [facility] Last Admin: 11/29/17 10:08 Dose: Not Given - Labs Labs: PT 11.4 SECONDS (9.4-12.5) 11/25/17 16:30 INR 1.00 (0.93-1.08) 11/25/17 16:30 APTT 22.2 Seconds (25.1-36.5) L 11/25/17 16:30 - Respiratory Exam Respiratory Exam: Clear to Ausculation Bilateral, NORMAL BREATHING PATTERN - Cardiovascular Exam Cardiovascular Exam: REGULAR RHYTHM - GI/Abdominal Exam GI & Abdominal Exam: Soft, Normal Bowel Sounds - Extremities Exam Extremities Exam: Normal Inspection - Neurological Exam Neurological Exam: Alert, Awake - Skin Skin Exam: Dry, Warm Assessment and Plan (1) Asthma Status: Acute (2) Hyperglycemia Status: Acute - Assessment and Plan (Free Text) Plan: for stress test this am, await cardio decision re possible cath
[2017-11-30] MEDS: Albuterol-Ipratrop 3 mg / 0.5 (3 ml) UD IH SCH ×4 (01:38→19:51)
--- NOTE | 2017-11-30 07:13 | CP.PCM.PN ---
Subjective - Date & Time of Evaluation Date of Evaluation: 11/30/17 Time of Evaluation: 07:00 - Subjective Subjective: Seen and examined by me and Dr. Christiansen Reason for consult and follow up:shortness of breath, COPD, smoker, obesity Subjective: lying in bed, denies chest pain and shortness of breath Objective - Vital Signs/Intake and Output Vital Signs (last 24 hours): Temp Pulse Resp BP Pulse Ox 98.6 F 70 20 132/72 97 11/30/17 06:00 11/30/17 06:00 11/30/17 06:00 11/30/17 06:00 11/30/17 06:00 Intake and Output: 11/30/17 11/30/17 06:59 18:59 Intake Total 540 Output Total 2 Balance 538 - Medications Medications: Current Medications Albuterol/Ipratropium (Duoneb 3 Mg/0.5 Mg (3 Ml) Ud) 3 ml IH [id number] [facility] Last Admin: 11/30/17 01:38 Dose: Not Given Albuterol/Ipratropium (Duoneb 3 Mg/0.5 Mg (3 Ml) Ud) 3 ml IH Q2H PRN PRN Reason: Shortness of Breath Budesonide (Pulmicort Respules) 0.5 mg IH [id number] [facility] Last Admin: 11/29/17 20:55 Dose: 0.5 mg Insulin Human Regular (Humulin R Low) 0 units SC ACHS [facility] PRN Reason: Protocol Last Admin: 11/29/17 22:11 Dose: Not Given Methylprednisolone (Medrol) 12 mg PO BID [facility] Last Admin: 11/29/17 16:59 Dose: 12 mg - Labs Labs: PT 11.4 SECONDS (9.4-12.5) 11/25/17 16:30 INR 1.00 (0.93-1.08) 11/25/17 16:30 APTT 22.2 Seconds (25.1-36.5) L 11/25/17 16:30 - Constitutional Appears: Well, No Acute Distress - Head Exam Head Exam: NORMAL INSPECTION, NORMOCEPHALIC - ENT Exam ENT Exam: Mucous Membranes Moist, Normal Exam - Respiratory Exam Respiratory Exam: Clear to Ausculation Bilateral, NORMAL BREATHING PATTERN - Cardiovascular Exam Cardiovascular Exam: REGULAR RHYTHM, +S1, +S2 Additional comments: no JVD - GI/Abdominal Exam GI & Abdominal Exam: Soft, Normal Bowel Sounds - Extremities Exam Extremities Exam: Normal Capillary Refill, Normal Inspection - Neurological Exam Neurological Exam: Alert, Awake, Oriented x3 - Psychiatric Exam Psychiatric exam: Normal Affect, Normal Mood - Skin Skin Exam: Dry, Intact, Normal Color, Warm Assessment and Plan - Assessment and Plan (Free Text) Assessment: IMPRESSION: shortness of breath, COPD, asthma, smoker, obesity Plan: Had Stress test yesterday awaiting final report if normal Stress test, may clear to discharge home Feeling better, breathing better Blood pressure and heart rate stable Will follow up Plan and treatment reviewed with Dr. Christiansen
[2017-11-30] MEDS: Budesonide 0.5 mg/2 ml Inhal Susp UD IH SCH ×2 (08:02→19:52)
[2017-11-30] MEDS: Insulin Reg-LOW-Coverage SC SCH ×4 (08:04→23:29)
--- NOTE | 2017-11-30 09:04 | PN ---
DATE: 11/30/2017 PULMONARY NOTE SUBJECTIVE: The patient appears very comfortable this morning. She is not short of breath at rest. PHYSICAL EXAMINATION: VITAL SIGNS: Temperature is 98.6, pulse 70, respirations 18, blood pressure 132/72. Oxygen saturation on room air is 97%. HEENT: Normocephalic, atraumatic. No JVD. CARDIOVASCULAR: Positive S1, S2. No S3 gallop. LUNGS: Clear bilaterally. EXTREMITIES: No clubbing, cyanosis or edema. Calves are nontender to palpation. GI: Abdomen is soft, nontender and nondistended. Bowel sounds are positive. SKIN: No acute rash. NEUROLOGIC: Limited at the present time. IMPRESSION: 1. Recurrent bronchitis. 2. Asthma. 3. Chronic obstructive pulmonary disease. 4. Chest discomfort/diffuse body aches - resolving. 5. Mild leukocytosis. PLAN: The patient appears very comfortable this morning. She is not short of breath at rest. Her chest discomfort continues to resolve. She does state to feeling much, much better overall. On physical exam, her lungs remain clear. Oxygen saturation on room air is 97%. I will continue with the current nebulizer treatments and decrease the oral steroids this morning. I will also change to prednisone for ease of weaning. Cardiology evaluation is ongoing. The patient is status post stress test. We are awaiting the results. Clinical status of the patient is significantly improved. I will discuss the above with Dr. Garcia. Manas Ruelas MD MTD[facility]bert
--- NOTE | 2017-11-30 10:50 | CARD ---
APPROVED REPORT Protocol: LEXISCAN Test Type: Lexiscan Sestamibi Stress Test Attending Physician: Dr. Ernestine Valera Referring Physician: Dr. Jakub Garcia Test Indications: Dyspnea Height:5 ft 8 in Weight:193lbs Medications: ALBUTEROL, DUONEB, PULMICORT, INSULIN, MEDROL, Medical History: 52 YEAR OLD FEMALE WITH A H/O ASTHMA, HTN, SMOKING, GERD, SEIZURES, , TUBAL LIGATION AND GESTATIONAL DIABTES Target HR: 170 bpm Resting ECG: RSR. Resting Heart Rate: 59 bpm Resting Blood Pressure: 116/80mmHg Submaximum (85%): 145 bpm PROCEDURE Pharmacologic stress testing was performed using 0.4mg per 5ml of regadenoson given intravenously over 7-10 seconds. Reversal agent aminophyline 100 mg, given intravenously for Dyspnea. POST EXERCISE Reason for Termination: Protocol completed Target HR: No Max HR: 61 bpm 63% of Maximum Predicted HR: 170 bpm Exercise duration: 00:31 min:sec, 0 Stage Exercise capacity: 1.0METs Max Blood Pressure: 116/80mmHg Blood Pressure response to exercise: normal resting BP - appropriate response Heart Rate response to exercise: appropriate Chest Pain: No, none Angina index: 0 Arrhythmia: No, none ST Change: No, none Deviation: 0 mm INTERPRETATION Stress EKG Conclusion: IV LEXISCAN NUCLEAR STRESS TEST NEGATIVE FOR CHEST PAIN AND NEGATIVE FOR ST-TCHANGES. NUCLEAR SCAN REPORT PENDING. Signed by Ernestine Valera Electronically Approved: 11/29/2017 13:53:16 EXAM: Myocardial Perfusion REST/STRESS Stress Test Type: Pharmacologic Imaging Protocol Rest Spect myocardial perfusion imaging was performed in supine position 45 minutes following the injection of 10.3 mCi of Tc-99 Myoview. At peak stress, the patient was injected intravenously with 30.2mCi of Tc-99 tetrofosmin after an infusion time of 0 minutes and 10 seconds. Gated Stress Spect was performed 65 minutes after intravenous Tc-99 Myoview injection. The images were gated to evaluate regional wall motion and calculate ventricular ejection fraction.Images were reconstructed using backfilter projection method in short horizontal and verticle long axis. Spect slices were generated. LV Perfusion The quality of the study is good. The left ventricle is normal in size with thickened myocardium. The right ventricle is unremarkable. The lung uptake is within normal limits. The distribution of tracer reveals normal uptake pattern throughout the LV myocardium on the stress study. The rest myocardial perfusion study shows no significant change. Wall Motion Wall motion study shows good contractility of the left ventricle. LVEF = 62%. Conclusion 1. Normal SPECT myocardial perfusion study. 2. Normal gated wall motion of the left ventricle.
--- NOTE | 2017-11-30 14:48 | PN ---
DATE: 11/30/2017 Addendum to the initial progress note dictated by our nurse practitioner, Shirley Oneal. REASON FOR ADDENDUM: Normal stress test. Also, the patient had echocardiography done that showed ejection fraction of 68%, normal RVSP 41 mmHg, probably upper limit normal to mildly elevated pulmonary hypertension. Normal stress test. A stress done yesterday that showed normal myocardial perfusion study, ejection fraction 62%. By echo, also the patient had a preserved LV function, calculated ejection fraction of 68%, trace mitral regurgitation, mild tricuspid regurgitation, RV systolic pressure of 41. RECOMMENDATION: Aggressively treat for COPD. No further cardiac workup is planned at this time. We will discontinue telemetry, possible discharge planning. No further cardiac workup is needed or planned. No right heart catheterization needed. The patient's RV systolic pressure of 41 is upper limit normal to mildly elevated. No further cardiac workup as mentioned. Continue medical treatment. Thank you, Dr. Garcia, for providing us the opportunity in taking care of the patient, Anai Ye. Ernestine Christiansen MD
[2017-12-01 01:15] VITALS: RESP 20; O2SAT 99
[2017-12-01] MEDS: Albuterol-Ipratrop 3 mg / 0.5 (3 ml) UD IH SCH ×2 (01:41→08:30)
[2017-12-01 06:16] VITALS: BP 129/74; PULSE 77; TEMP 98.9
--- NOTE | 2017-12-01 07:07 | CP.PCM.PN ---
Subjective - Date & Time of Evaluation Date of Evaluation: 12/01/17 Time of Evaluation: 06:15 - Subjective Subjective: Seen and examined by me and Dr. Christiansen Reason for consult and follow up: shortness of breath, COPD, asthma, smoker, obesity Subjective: lying in bed, denies chest pain, denies shortness of breath in bed, however claimed to have SOB when walking. Objective - Vital Signs/Intake and Output Vital Signs (last 24 hours): Temp Pulse Resp BP Pulse Ox 98.9 F 77 20 129/74 99 12/01/17 06:00 12/01/17 06:00 12/01/17 06:00 12/01/17 06:00 12/01/17 06:00 Intake and Output: 12/01/17 12/01/17 06:59 18:59 Intake Total 720 Output Total 600 Balance 120 - Medications Medications: Current Medications Albuterol/Ipratropium (Duoneb 3 Mg/0.5 Mg (3 Ml) Ud) 3 ml IH [id number] [facility] Last Admin: 12/01/17 01:41 Dose: Not Given Albuterol/Ipratropium (Duoneb 3 Mg/0.5 Mg (3 Ml) Ud) 3 ml IH Q2H PRN PRN Reason: Shortness of Breath Budesonide (Pulmicort Respules) 0.5 mg IH [id number] [facility] Last Admin: 11/30/17 19:52 Dose: 0.5 mg Insulin Human Regular (Humulin R Low) 0 units SC ACHS [facility] PRN Reason: Protocol Last Admin: 11/30/17 23:29 Dose: Not Given Prednisone (Prednisone Tab) 20 mg PO DAILY [facility] Last Admin: 11/30/17 10:31 Dose: 20 mg - Labs Labs: PT 11.4 SECONDS (9.4-12.5) 11/25/17 16:30 INR 1.00 (0.93-1.08) 11/25/17 16:30 APTT 22.2 Seconds (25.1-36.5) L 11/25/17 16:30 - Constitutional Appears: Well, No Acute Distress - Head Exam Head Exam: NORMAL INSPECTION - Eye Exam Eye Exam: Normal appearance Pupil Exam: NORMAL ACCOMODATION - ENT Exam ENT Exam: Mucous Membranes Moist - Neck Exam Neck Exam: Full ROM - Respiratory Exam Respiratory Exam: Clear to Ausculation Bilateral, NORMAL BREATHING PATTERN - Cardiovascular Exam Cardiovascular Exam: REGULAR RHYTHM, +S1, +S2 - GI/Abdominal Exam GI & Abdominal Exam: Soft, Normal Bowel Sounds - Extremities Exam Extremities Exam: Full ROM, Normal Capillary Refill, Normal Inspection - Neurological Exam Neurological Exam: Alert, Awake, Oriented x3 - Psychiatric Exam Psychiatric exam: Anxious - Skin Skin Exam: Intact, Normal Color, Warm Assessment and Plan - Assessment and Plan (Free Text) Assessment: IMPRESSION: shortness of breath, COPD, asthma, smoker, obesity Plan: Had Stress test Wednesday with normal results, cleared for discharge from cardiac standpoint however refused to go home due to still feeling short of breath when walking. Discharge was held off. She is concern/anxious about going home and will have episodes of shortness of breath. May consider Psych consult to evaluate anxiety Blood pressure and heart rate stable Cardiac status stable Will follow up Plan and treatment reviewed with Dr. Christiansen
--- NOTE | 2017-12-01 07:51 | PN ---
DATE: PULMONARY NOTE SUBJECTIVE: The patient appears very comfortable at rest. She is not short of breath. OBJECTIVE VITAL SIGNS: Temperature is 98.9, pulse 77, respirations 18, blood pressure 129/74. Oxygen saturation on room air is 99%. HEENT: Normocephalic, atraumatic. NECK: No JVD. CARDIOVASCULAR: Positive S1, S2. No S3 gallop. LUNGS: Clear bilaterally. EXTREMITIES: No clubbing, cyanosis or edema. Calves are nontender to palpation. GASTROINTESTINAL: Abdomen is soft, nontender and nondistended. Bowel sounds are positive. SKIN: No acute rash. NEUROLOGIC: Exam limited at the present time. IMPRESSION 1. Recurrent bronchitis. 2. Asthma. 3. Chronic obstructive pulmonary disease. 4. Chest discomfort/diffuse body aches - resolved. 5. Mild leukocytosis. PLAN: The patient appears very comfortable this morning. She is not short of breath at rest. There is no chest discomfort. She does state to feeling much better overall. I did have a long discussion with the night nurse. The night nurse did observe the patient ambulating during her shift. The night nurse notes no shortness of breath whatsoever with ambulation. On physical exam, her lungs remain clear. Oxygen saturation on room air is 99%. I will continue with the current nebulizer treatments and low-dose oral steroids for now. Input by Cardiology is also noted. Clinical status of the patient is significantly improved. I will discuss the above with Dr. Garcia. Manas Ruelas MD MTDD
[2017-12-01] MEDS: Budesonide 0.5 mg/2 ml Inhal Susp UD IH SCH (08:30)
[2017-12-01] MEDS: Insulin Reg-LOW-Coverage SC SCH (08:30)
--- NOTE | 2017-12-01 09:58 | DS ---
HOSPITAL COURSE: The patient is a 52-year-old female, admitted through the emergency department on 11/25/2017 with shortness of breath. The patient had a ventilation-perfusion scan, which was negative as well as a Doppler of the lower extremities, which was negative for DVT. She was seen in consultation by Pulmonary, Dr. Barrera and Dr. Ruelas, started on intravenous steroids and nebulizer treatments. She was also seen in consultation by Dr. Valera and Dr. Christiansen of cardiology. She had a nuclear stress test, which was negative for ischemic changes. The patient has had an uneventful hospital course and is medically stable for discharge. She complains of some mild dyspnea on exertion. PHYSICAL EXAMINATION: VITAL SIGNS: Blood pressure 132/90, temperature 98.6, pulse 68, respiratory rate 16. LUNGS: Clear. HEART: Regular rate and rhythm. ABDOMEN: Soft, nontender. Bowel sounds are normoactive. EXTREMITIES: Without cyanosis, clubbing or edema. LABORATORY DATA: Blood and urine cultures were no growth at 48-72 hours. IMPRESSION: 1. Exacerbation of asthma. 2. Rule out pulmonary hypertension. 3. Hyperglycemia and leukocytosis, probably secondary to steroids. 4. History of polycystic ovarian syndrome. PLAN: The patient will be discharged to home in stable condition on the following medications, loratadine 10 mg daily, Trelegy Ellipta 100-62-25 one puff daily and she will complete a course of Medrol Dosepak as well as Pulmicort Respules 0.5 mg inhaled q. 12 hours. Activity is ad libitum. The patient will be maintained on a heart-healthy diet. The patient will be followed as an outpatient in my office in the next 1-2 weeks and will be followed up by Dr. Barrera and Dr. Ruelas for Pulmonary as well as Dr. Valera and Dr. Christiansen for Cardiology. DAMION Olivo MD
--- NOTE | 2017-12-02 05:21 | DS ---
HOSPITAL COURSE: The patient is a 52-year-old female admitted through the Emergency Department on 11/25/2017 with shortness of breath. The patient had a VQ scan, which was negative as well as a Doppler of her lower extremities which was negative for DVT. She was seen in consultation by Pulmonary, Dr. Barrera and Dr. Ruelas, started on intravenous steroids and nebulizer treatment with some improvement of her symptoms. She was also seen in consultation by Dr. Valera and Dr. Christiansen from Cardiology. She had a nuclear stress test, which was negative for ischemia. The patient has an uneventful hospital course and is medically stable for discharge. PHYSICAL EXAMINATION: VITAL SIGNS: Blood pressure 129/74, temperature 98.9, pulse 77, respiratory rate 20. LUNGS: Clear. HEART: Regular rate and rhythm. ABDOMEN: Soft, nontender. Bowel sounds are normoactive. EXTREMITIES: Without cyanosis, clubbing, or edema. SKIN: Warm and dry. IMPRESSION: 1. Exacerbation of asthma. 2. Hyperglycemia and leukocytosis probably secondary to steroids. 3. History of polycystic ovarian syndrome. PLAN: The patient will be discharged to home today in stable condition on the following medications, loratadine 10 mg daily, Trelegy Ellipta 10-62-25 one puff daily, and she will complete a course of Medrol Dosepak. She is also on Pulmicort Respules 0.5 mg inhaled every 12 hours. ACTIVITIES: Ad libitum. The patient will be maintained on a heart-healthy diet. The patient will followed as an outpatient in my office in the next 1 to 2 weeks and will be followed up by Dr. Barrera and Dr. Ruelas for Pulmonary as well as Dr. Valera and Dr. Christiansen for Cardiology. DAMION Olivo MD
--- NOTE | 2017-12-02 08:52 | PN ---
DATE: 12/01/2017 REASON FOR DICTATION: ADDENDUM. The initial progress note dictated by our nurse practitioner, Shirley Oneal APN. REASON FOR ADDENDUM: Last night, the patient was resumed in telemetry because the patient has a concern that she is not doing good. Discussed in length with the patient's overall, explained the patient's stress test was essentially negative, echo is essentially also negative. RV systolic pressure of 41 is upper limit normal and explained the patient that the shortness of breath is most likely secondary to acute bronchitis and upper respiratory tract infection and the patient is gaining weight, but otherwise no further cardiac workup is warranted and we will discontinue telemetry. Discussed last night with Dr. Garcia also. The patient clear from cardiology point of view, to be discharged and we will discontinue telemetry. Further recommendation as per Dr. Garcia and Pulmonary. We will discontinue telemetry. Also mention that the patient is that causes increasing blood sugar. The patient says that she understood. Ernestine Christiansen MD
== END 2017-12-01 11:03 | disposition home or self-care (01) | DRG 203 ==
LOC: ED 15:29 → ERH 18:52 → 2RNO 22:05
PROVIDERS: ADMIT Internal Medicine; ATTEND Internal Medicine
PROC: 3E0F7GC Introduction of Other Therapeutic Substance into Respiratory Tract, Via Natural or Artificial Opening (ICD-10-PCS; principal; 2017-11-26)
DX: J45.901 Unspecified asthma with (acute) exacerbation (principal); E09.65 Drug or chemical induced diabetes mellitus with hyperglycemia; I27.20 Pulmonary hypertension, unspecified; T38.0X5A Adverse effect of glucocorticoids and synthetic analogues, initial encounter; E28.2 Polycystic ovarian syndrome; F17.200 Nicotine dependence, unspecified, uncomplicated; E66.9 Obesity, unspecified; Z68.32 Body mass index [BMI] 32.0-32.9, adult; Z86.32 Personal history of gestational diabetes

== ENCOUNTER 2019-01-02 08:49 | Inpatient (IN) | payer BC ==
[2019-01-02] MEDS ORDERED: methylPREDNISolone 125 MG in Sodium Chloride 0.9% 100 ML IVPB ONE (09:11)
[2019-01-02] MEDS ORDERED: Sodium Chloride 0.9% 500 ML IV STA ×2 (09:14→10:09)
[2019-01-02] MEDS: Albuterol-Ipratrop 3 mg / 0.5 (3 ml) UD IH SCH ×5 (09:15→20:54)
--- NOTE | 2019-01-02 09:21 | ED PDOC ---
Arrival/HPI - General Chief Complaint: Shortness Of Breath Time Seen by Provider: 01/02/19 09:03 Historian: Patient - History of Present Illness Narrative History of Present Illness (Text): 01/02/19 09:27 53 y/o female with PMH of HTN, gastric ulcer, GERD, asthma, and COPD presents to the ED c/o worsening SOB x 2 days. She has been using her inhaler more often and used her nebulizer twice this morning without relief. Associated lightheadedness and productive cough. Pt has had multiple hospitalizations for her asthma/COPD in the last 3 months, most recently last week at [facility]. Also has been noticing dark stools for the last few weeks. Denies fever, chills, chest pain, nausea, vomiting, abdominal pain, hemoptysis, leg swelling, calf pain, headache, vision changes, or any other associated symptoms. Past Medical History - Provider Review Nursing Documentation Reviewed: Yes - Infectious Disease Hx of Infectious Diseases: None - Tetanus Immunization Tetanus Immunization: Unknown - Reproductive Menopause: No - Cardiac Hx Hypertension: Yes - Pulmonary Hx Asthma: Yes - Neurological Hx Seizures: Yes (as a child) - HEENT Hx HEENT Disorder: No - Renal Hx Renal Disorder: No - Endocrine/Metabolic Hx Endocrine Disorders: No - Hematological/Oncological Hx Blood Disorders: No Hx Blood Transfusions: No Hx Blood Transfusion Reaction: No - Integumentary Hx Dermatological Disorder: No - Musculoskeletal/Rheumatological Hx Musculoskeletal Disorders: No - Gastrointestinal Hx Gastrointestinal Disorders: No - Genitourinary/Gynecological Hx Genitourinary Disorders: No - Psychiatric Hx Depression: No Hx Emotional Abuse: No Hx Physical Abuse: No Hx Substance Use: No - Past Surgical History Past Surgical History: Non-Contributing - Surgical History Hx Section: Yes Hx Orthopedic Surgery: Yes Hx Tubal Ligation: Yes - Anesthesia Hx Anesthesia: Yes Hx Anesthesia Reactions: No Hx Malignant Hyperthermia: No - Suicidal Assessment Feels Threatened In Home Enviroment: No Family/Social History - Physician Review Nursing Documentation Reviewed: Yes Family/Social History: No Known Family HX Smoking Status: Current Some Days Smoker Hx Alcohol Use: Yes Hx Substance Use: No Hx Substance Use Treatment: No Allergies/Home Meds Allergies/Adverse Reactions: Allergies pollen extracts Allergy (Verified 11/25/17 15:38) URTICARIA Home Medications: Home Meds Medication Instructions Recorded Confirmed Albuterol HFA [Ventolin HFA 90 3 ml NEB PRN PRN 01/02/19 01/02/19 mcg/actuation (8 g)] Albuterol/Ipratropium [Duoneb 3 3 ml NEB PRN PRN 01/02/19 01/02/19 mg/0.5 mg (3 ml) UD] Biotin 100 mcg PO DAILY 01/02/19 01/02/19 Cyanocobalamin [Vitamin B12 1000 1,000 mcg PO DAILY 01/02/19 01/02/19 mcg Tab] GlipiZIDE [Glucotrol] 5 mg PO DAILY 01/02/19 01/02/19 Levothyroxine [Synthroid] 25 mg PO DAILY 01/02/19 01/02/19 Lisinopril [Zestril] 2.5 tab-cap PO DAILY 01/02/19 01/02/19 Loratadine [Claritin] 10 mg PO DAILY 01/02/19 01/02/19 Omeprazole 20 mg PO DAILY 01/02/19 01/02/19 Vitamin D3 125 mcg PO DAILY 01/02/19 01/02/19 metFORMIN [glucOPHAGE] 2 tab PO BID 01/02/19 01/02/19 Review of Systems - Review of Systems Constitutional: Normal. absent: Fatigue, Fevers Eyes: Normal. absent: Vision Changes ENT: Normal. absent: Sore Throat, Sinus Congestion Respiratory: SOB, Cough, Sputum, Wheezing Cardiovascular: Normal. absent: Chest Pain, Palpitations, Syncope Gastrointestinal: Other (melena). absent: Abdominal Pain, Nausea, Vomiting Genitourinary Female: Normal. absent: Dysuria, Frequency Musculoskeletal: Normal. absent: Back Pain, Neck Pain Skin: Normal. absent: Rash Neurological: Dizziness. absent: Headache Psychiatric: Anxiety Physical Exam Vital Signs Reviewed: Yes Vital Signs Temp Pulse Resp BP Pulse Ox 01/02/19 09:02 98.6 F 82 18 122/71 100 Temperature: Afebrile Blood Pressure: Normal Pulse: Regular Respiratory Rate: Tachypneic Appearance: Positive for: Well-Appearing, Non-Toxic, Uncomfortable Pain Distress: Other (Short of Breath) Mental Status: Positive for: Alert and Oriented X 3 - Systems Exam Head: Present: Atraumatic, Normocephalic Pupils: Present: PERRL Extroacular Muscles: Present: EOMI Conjunctiva: Present: Normal Mouth: Present: Moist Mucous Membranes Neck: Present: Normal Range of Motion. No: Meningeal Signs Respiratory/Chest: Present: Wheezes (bilateral, diffuse, expiratory), Decreased Breath Sounds (bilaterally), Rhonchi (intermittent throughout all lung lilly), Tachypneic. No: Respiratory Distress, Accessory Muscle Use, Rales Cardiovascular: Present: Regular Rate and Rhythm, Normal S1, S2, Peripheal Pulses Present Abdomen: Present: Normal Bowel Sounds. No: Tenderness, Distention, Peritoneal Signs, Rebound, Guarding Back: Present: Normal Inspection. No: CVA Tenderness Upper Extremity: Present: Normal Inspection, Normal ROM, NORMAL PULSES, Neurovascularly Intact, Capillary Refill < 2s. No: Cyanosis, Edema, Temperature Abnormalties Lower Extremity: Present: Normal Inspection, NORMAL PULSES, Normal ROM, Neurovascularly Intact, Capillary Refill < 2 s. No: Edema, Temperature Abnormalties Neurological: Present: GCS=15, CN II-XII Intact, Speech Normal, Motor Func Grossly Intact, Normal Sensory Function, Gait Normal Skin: Present: Warm, Dry, Normal Color. No: Rashes Psychiatric: Present: Alert, Oriented x 3, Normal Insight, Normal Concentration, Normal Affect, Normal Mood Medical Decision Making ED Course and Treatment: 01/02/19 09:23 Initial Plan: * CBC, CMP * Mg, Phos * Troponin * VBG * CXR * EKG * IVF * Solumedrol * Duoneb x 3 EKG shows NSR at 86; short VT, otherwise normal intervals; No STEMI, nonspecific ST/T wave changes 09:47 Lactate 4.5, no tachypnea, tachycardia, or fever. Pending CBC to assess for leukocytosis. 10:29 CXR unremarkable Bloodwork reviewed, elevated glucose, microcytic anemia, hypomagnesia; no leukocytosis Hemoccult positive, brown stool 11:00 Spoke with medicine brickmason helper, Dr. Fuchs who accepted patient for inpatient telemetry admission with diagnosis of COPD exacerbation, GI Bleed, and Anemia. Pt updated with change in disposition. Dr. Fuchs requests consults with Pulm (Dr. Barrera) and GI (Dr. Payne), with ABG and type&screen. Pt consented for blood transfusion here in ED. - Lab Interpretations Lab Results: 01/02/19 09:34 01/02/19 09:34 Lab Results 01/02/19 10:04: Urine Color Yellow, Urine Appearance Clear, Urine pH 6.0, Ur Specific [place] >= 1.030, Urine Protein 30 H, Urine Glucose (UA) Negative, Urine Ketones Trace H, Urine Blood Negative, Urine Nitrate Negative, Urine Bilirubin Negative, Urine Urobilinogen 0.2, Ur Leukocyte Esterase Trace H, Urine RBC Pending, Urine WBC Pending 01/02/19 09:35: pO2 25 L, VBG pH 7.39, VBG pCO2 39.0 L, VBG HCO3 23.6, VBG Total CO2 24.8, VBG O2 Sat (Calc) 50.1, VBG Base Excess -1.2 L, VBG Potassium 4.3, Glucose 217 H, Lactate 4.5 H*, FiO2 21.0, Crit Value Called To adrianna Berry, Crit Value Called By [id number], Blood Gas Notified Time 945, Sodium 141.0, Chloride 108.0 H, Venous Blood Potassium 4.3 01/02/19 09:34: Sodium 141, Potassium 4.2, Chloride 107, Carbon Dioxide 23, Anion Gap 15, BUN 11, Creatinine 0.7, Est GFR ( Amer) > 60, Est GFR (Non- Af Amer) > 60, Random Glucose 203 H, Calcium 8.5, Phosphorus 2.2 L, Magnesium 1.5 L, Total Bilirubin 0.3, AST 39 H D, ALT 37, Alkaline Phosphatase 53, Troponin I < 0.01, Total Protein 6.7, Albumin 3.7, Globulin 3.0, Albumin/Globulin Ratio 1.2 01/02/19 09:34: WBC 9.8, RBC 4.13, Hgb 8.8 L D, Hct 30.7 L, MCV 74.3 L D, MCH 21.3 L, MCHC 28.7 L, RDW 18.7 H, Plt Count 206, MPV 9.8, Neut % (Auto) 62.1, Lymph % (Auto) 28.2, [place] % (Auto) 6.0, Eos % (Auto) 3.5, Baso % (Auto) 0.2, Lymph # (Auto) 2.8, [place] # (Auto) 0.6, Eos # (Auto) 0.3, Baso # (Auto) 0.02, Absolute Neuts (auto) 6.10 I have reviewed the lab results: Yes - RAD Interpretation Narrative RAD Interpretations (Text): 01/02/19 11:14 CXR: FINDINGS: LUNGS: No active pulmonary disease. PLEURA: No significant pleural effusion identified, no pneumothorax apparent. CARDIOVASCULAR: No aortic atherosclerotic calcification present. Normal cardiac size. No pulmonary vascular congestion. OSSEOUS STRUCTURES: No significant abnormalities. VISUALIZED UPPER ABDOMEN: Normal. OTHER FINDINGS: None. IMPRESSION: No active disease. Radiology Orders: 01/02/19 09:12 CHEST PORTABLE [RAD] Stat Vamp Marker: Radiologist - EKG Interpretation EKG Interpretation (Text): 01/02/19 09:26 NSR at 86; short VT, otherwise normal intervals; No STEMI, nonspecific ST/T wave changes Interpreted by ED Physician: Yes Type: 12 lead EKG - Medication Orders Current Medication Orders: Albuterol/Ipratropium (Duoneb 3 Mg/0.5 Mg (3 Ml) Ud) 3 ml IH Q15M MARIE Stop: 01/02/19 09:46 Methylprednisolone 125 mg/ (Sodium Chloride) 100 mls @ 200 mls/hr IVPB ONCE ONE Stop: 01/02/19 09:12 Sodium Chloride (Sodium Chloride 0.9%) 500 mls @ 999 mls/hr IV .Q31M STA Stop: 01/02/19 09:44 Disposition/Present on Arrival - Present on Arrival Any Indicators Present on Arrival: No History of DVT/PE: No History of Uncontrolled Diabetes: No Urinary Catheter: No History of Decub. Ulcer: No History Surgical Site Infection Following: None - Disposition Have Diagnosis and Disposition been Completed?: Yes Diagnosis: COPD exacerbation, Anemia, GI bleed, Hyperglycemia Disposition: HOSPITALIZED Disposition Time: 11:00 Patient Plan: Admission Condition: STABLE
[2019-01-02 09:45] LABS: VENOUS BLOOD GAS BASE EXCESS -1.2 mmol/L (0.0-2.0); VENOUS BLOOD GAS PO2 25 mm/Hg (30-55); VENOUS BLOOD PH 7.39 (7.32-7.43)
[2019-01-02 09:52] LABS: BASO # 0.02 K/mm3 (0.0-2.0); BASO % 0.2 % (0.0-3.0); EOS # 0.3 (0.0-0.7); EOS % 3.5 % (1.5-5.0); HEMOGLOBIN 8.8 g/dL (12.0-16.0); LYMPH # 2.8 (1.2-3.4); LYMPH % 28.2 % (22.0-35.0); MEAN CELL VOLUME 74.3 fl (80.0-105.0); MEAN CORPUSCULAR HEMOGLOBIN 21.3 pg (25.0-35.0); MEAN CORPUSCULAR HGB CONC 28.7 g/dl (31.0-37.0); MEAN PLATELET VOLUME 9.8 fl (7.0-11.0); MONO # 0.6 (0.1-0.6); RBC 4.13 10^6/uL (3.5-6.1); RED CELL DISTRIBUTION WIDTH 18.7 % (11.5-14.5); WHITE BLOOD COUNT 9.8 10^3/uL (4.5-11.0)
--- NOTE | 2019-01-02 09:53 | RAD ---
Date of service: 01/02/2019 HISTORY: SOB COMPARISON: 11/25/2017 TECHNIQUE: 1 view obtained. FINDINGS: LUNGS: No active pulmonary disease. PLEURA: No significant pleural effusion identified, no pneumothorax apparent. CARDIOVASCULAR: No aortic atherosclerotic calcification present. Normal cardiac size. No pulmonary vascular congestion. OSSEOUS STRUCTURES: No significant abnormalities. VISUALIZED UPPER ABDOMEN: Normal. OTHER FINDINGS: None. IMPRESSION: No active disease.
[2019-01-02 10:05] LABS: ALB/GLOB RATIO 1.2 (1.1-1.8); ALBUMIN 3.7 g/dL (3.0-4.8); ALT/SGPT 37 U/L (7-56); AST/SGOT 39 U/L (14-36); BLOOD UREA NITROGEN 11 mg/dL (7-21); CALCIUM 8.5 mg/dL (8.4-10.5); GFR NON-AFRICAN AMERICAN > 60
[2019-01-02] MEDS ORDERED: Vancomycin 1gm in NS 250ml 1 GM/250 ML BAG IVPB STA (10:05)
[2019-01-02] MEDS ORDERED: Piperacillin/Tazobact 3.375 gm 100 ML IVPB STA (10:05)
[2019-01-02] MEDS ORDERED: Magnesium Sulfate 2 gm/50 ml 2 GM/50 ML BAG IVPB ONE (10:10)
[2019-01-02 10:14] LABS: TROPONIN I < 0.01 ng/mL
[2019-01-02 10:29] LABS: URINE BILIRUBIN NEGATIVE (NEGATIVE); URINE BLOOD NEGATIVE (NEGATIVE); URINE GLUCOSE (UA) NEGATIVE (NEGATIVE); URINE LEUKOCYTE ESTERASE TRACE Leu/uL (NEGATIVE); URINE PROTEIN 30 mg/dL (<30 mg/dL); URINE UROBILINOGEN 0.2 E.U./dL (<1 E.U./dL)
[2019-01-02 10:30] LABS: URINE APPEARANCE CLEAR (CLEAR); URINE COLOR YELLOW (YELLOW)
[2019-01-02 10:43] LABS: URINE BACTERIA MANY /hpf; URINE EPITHELIAL CELLS MANY /hpf (0-5)
[2019-01-02 11:01] LABS: INR 1.03; PARTIAL THROMBOPLASTIN TIME 26.5 Seconds (26.9-38.3); PROTHROMBIN TIME 11.6 SECONDS (9.4-12.5)
[2019-01-02] MEDS ORDERED: Albuterol-Ipratrop 3 mg / 0.5 (3 ml) UD IH PRN ×2 (11:29→14:09)
[2019-01-02 11:30] LABS: ARTERIAL BLOOD GAS HCO3 19.2 mmol/L (21-28); ARTERIAL BLOOD GAS PCO2 27 mm/Hg (35-45); ARTERIAL BLOOD GAS PH 7.46 (7.35-7.45)
[2019-01-02] MEDS ORDERED: Pantoprazole 40 mg EC Tab PO SCH (11:30)
--- NOTE | 2019-01-02 11:40 | CP.PCM.HP ---
History of Present Illness - History of Present Illness History of Present Illness: Markus Kristen PGY2 IM H&P Note for Dr. Fuchs cc: shortness of breath and dizziness x2 days Ms. Ye is a 53 year old female with a PMH of COPD (supposed to be on home O2), DM2 and hypothyroidism who presents with shortness of breath and some dizziness the last 2 days. She also states that she has had increased sputum production, and has been feeling warm; she denies any recent travel or sick cont acts. Patient states that she had similar complaints 2 weeks and was seen [place] [facility] [place] discharged with steroid taper and 2 anitbiotics (but she cannot recall the names). The patient received little relief following that and her symptoms worsened over this weekend. Patient has had multiple admissions in the past year for her COPD exacerbations and has been using her rescue inhaler multiple times a day recently. Patient sees Dr. Barrera as an outpatient, and she was supposed to be on Trelegy Ellipta, home O2 and using CPAP at home, but she does not use either due to undesired side-effects. She has last seen Dr. Barrera a few months ago and did not follow-up because she has not been taking the meds. Per ED note, the patient also complaining of dark stools. 12-pt ROS was reviewed and is otherwise unremarkable. Chart review reveals EGD/EUS from 2012 that showed severe duodenitis, GB polyp, and fatty liver w/ duodenal biopsy showing increased intraepithelial lymphocytes and hyperplastic kevin's glands. PMD: Dr. Deneen Epperson Pulm: Dr. Barrera PMD: COPD, DM2, hypothyroidism PSH: x2, b/l tubal ligation, right leg orthopedic surgery Meds: Metformin 500mg BID, Glipizide 5mg daily, Levothyroxine 25mcg daily, Lisinopril 25mg daily, PPI, Loratidine 10mg daily, vit D/folic acid/b12/biotin supplements, ventolin prn, albuterol prn, O2 Allergies: pollen, dust SHx: former tobacco user, social EtOH user, denies drug use. works as a compliance paralegal FHx: DM2, gastric cancer Present on Admission - Present on Admission Any Indicators Present on Admission: No Review of Systems - Review of Systems All systems: reviewed and no additional remarkable complaints except (as per HPI) Past Patient History - Infectious Disease Hx of Infectious Diseases: None - Tetanus Immunizations Tetanus Immunization: Unknown - Past Social History Smoking Status: Current Some Days Smoker - CARDIAC Hx Hypertension: Yes - PULMONARY Hx Asthma: Yes - NEUROLOGICAL Hx Seizures: Yes (as a child) - HEENT Hx HEENT Problems: No - RENAL Hx Chronic Kidney Disease: No - ENDOCRINE/METABOLIC Hx Endocrine Disorders: No - HEMATOLOGICAL/ONCOLOGICAL Hx Blood Disorders: No Hx Blood Transfusions: No Hx Blood Transfusion Reaction: No - INTEGUMENTARY Hx Dermatological Problems: No - MUSCULOSKELETAL/RHEUMATOLOGICAL Hx Musculoskeletal Disorders: No - GASTROINTESTINAL Hx Gastrointestinal Disorders: No - GENITOURINARY/GYNECOLOGICAL Hx Genitourinary Disorders: No - PSYCHIATRIC Hx Depression: No Hx Emotional Abuse: No Hx Physical Abuse: No Hx Substance Use: No - SURGICAL HISTORY Hx Section: Yes Hx Orthopedic Surgery: Yes Hx Tubal Ligation: Yes - ANESTHESIA Hx Anesthesia: Yes Hx Anesthesia Reactions: No Hx Malignant Hyperthermia: No Meds Allergies/Adverse Reactions: Allergies Allergy/AdvReac Type Severity Reaction Status Date / Time pollen extracts Allergy URTICARIA Verified 11/25/17 15:38 Physical Exam - Constitutional Appears: Non-toxic, No Acute Distress - Head Exam Head Exam: ATRAUMATIC, NORMAL INSPECTION - Eye Exam Eye Exam: EOMI, Normal appearance, PERRL - ENT Exam ENT Exam: Mucous Membranes Moist, Normal Exam - Neck Exam Neck exam: Positive for: Full Rom, Normal Inspection - Respiratory Exam Respiratory Exam: Wheezes (b/l diffuse). absent: Rhonchi, Respiratory Distress - Cardiovascular Exam Cardiovascular Exam: RRR, +S1, +S2. absent: Systolic Murmur - GI/Abdominal Exam GI & Abdominal Exam: Normal Bowel Sounds, Soft. absent: Distended, Tenderness - Extremities Exam Extremities exam: Positive for: full ROM. Negative for: pedal edema - Back Exam Back exam: NORMAL INSPECTION. absent: tenderness - Neurological Exam Neurological exam: Alert, CN II-XII Intact - Skin Skin Exam: Normal Color, Warm Results - Vital Signs Recent Vital Signs: Last Vital Signs Temp 98.6 F 01/02/19 09:02 Pulse 88 01/02/19 11:06 Resp 18 01/02/19 11:06 BP 126/72 01/02/19 11:06 Pulse Ox 100 01/02/19 11:06 - Labs Result Diagrams: 01/02/19 09:34 01/02/19 09:34 Labs: Laboratory Results - last 24 hr 01/02/19 01/02/19 01/02/19 09:34 09:34 09:35 WBC 9.8 RBC 4.13 Hgb 8.8 L D Hct 30.7 L MCV 74.3 L D MCH 21.3 L MCHC 28.7 L RDW 18.7 H Plt Count 206 MPV 9.8 Neut % (Auto) 62.1 Lymph % (Auto) 28.2 [place] % (Auto) 6.0 Eos % (Auto) 3.5 Baso % (Auto) 0.2 Lymph # (Auto) 2.8 [place] # (Auto) 0.6 Eos # (Auto) 0.3 Baso # (Auto) 0.02 Absolute Neuts (auto) 6.10 PT INR APTT pCO2 pO2 25 L HCO3 ABG pH ABG Total CO2 ABG O2 Saturation ABG Base Excess ABG Potassium VBG pH 7.39 VBG pCO2 39.0 L VBG HCO3 23.6 VBG Total CO2 24.8 VBG O2 Sat (Calc) 50.1 VBG Base Excess -1.2 L VBG Potassium 4.3 Glucose 217 H Lactate 4.5 H* FiO2 21.0 Crit Value Called To adrianna Berry Crit Value Called By [id number] Blood Gas Notified Time 945 Sodium 141 141.0 Potassium 4.2 Chloride 107 108.0 H Carbon Dioxide 23 Anion Gap 15 BUN 11 Creatinine 0.7 Est GFR ( Amer) > 60 Est GFR (Non-Af Amer) > 60 Random Glucose 203 H Calcium 8.5 Phosphorus 2.2 L Magnesium 1.5 L Total Bilirubin 0.3 AST 39 H D ALT 37 Alkaline Phosphatase 53 Troponin I < 0.01 NT-Pro-B Natriuret Pep Total Protein 6.7 Albumin 3.7 Globulin 3.0 Albumin/Globulin Ratio 1.2 Arterial Blood Potassium Venous Blood Potassium 4.3 Urine Color Urine Appearance Urine pH Ur Specific [place] Urine Protein Urine Glucose (UA) Urine Ketones Urine Blood Urine Nitrate Urine Bilirubin Urine Urobilinogen Ur Leukocyte Esterase Urine RBC Urine WBC Ur Epithelial Cells Urine Bacteria 01/02/19 01/02/19 01/02/19 10:04 10:31 10:31 WBC RBC Hgb Hct MCV MCH MCHC RDW Plt Count MPV Neut % (Auto) Lymph % (Auto) [place] % (Auto) Eos % (Auto) Baso % (Auto) Lymph # (Auto) [place] # (Auto) Eos # (Auto) Baso # (Auto) Absolute Neuts (auto) PT 11.6 INR 1.03 APTT 26.5 L pCO2 pO2 HCO3 ABG pH ABG Total CO2 ABG O2 Saturation ABG Base Excess ABG Potassium VBG pH VBG pCO2 VBG HCO3 VBG Total CO2 VBG O2 Sat (Calc) VBG Base Excess VBG Potassium Glucose Lactate FiO2 Crit Value Called To Crit Value Called By Blood Gas Notified Time Sodium Potassium Chloride Carbon Dioxide Anion Gap BUN Creatinine Est GFR ( Amer) Est GFR (Non-Af Amer) Random Glucose Calcium Phosphorus Magnesium Total Bilirubin AST ALT Alkaline Phosphatase Troponin I NT-Pro-B Natriuret Pep 69.8 Total Protein Albumin Globulin Albumin/Globulin Ratio Arterial Blood Potassium Venous Blood Potassium Urine Color Yellow Urine Appearance Clear Urine pH 6.0 Ur Specific [place] >= 1.030 Urine Protein 30 H Urine Glucose (UA) Negative Urine Ketones Trace H Urine Blood Negative Urine Nitrate Negative Urine Bilirubin Negative Urine Urobilinogen 0.2 Ur Leukocyte Esterase Trace H Urine RBC None Urine WBC 5 - 10 H Ur Epithelial Cells Many H Urine Bacteria Many 01/02/19 11:20 WBC RBC Hgb Hct MCV MCH MCHC RDW Plt Count MPV Neut % (Auto) Lymph % (Auto) [place] % (Auto) Eos % (Auto) Baso % (Auto) Lymph # (Auto) [place] # (Auto) Eos # (Auto) Baso # (Auto) Absolute Neuts (auto) PT INR APTT pCO2 27 L pO2 116.0 H HCO3 19.2 L ABG pH 7.46 H ABG Total CO2 20.0 L ABG O2 Saturation 99.0 H ABG Base Excess -3.2 L ABG Potassium 3.3 L VBG pH VBG pCO2 VBG HCO3 VBG Total CO2 VBG O2 Sat (Calc) VBG Base Excess VBG Potassium Glucose 170 H Lactate 2.5 H FiO2 28.0 Crit Value Called To adrianna Berry Crit Value Called By 3769 Blood Gas Notified Time 1130 Sodium 140.0 Potassium Chloride 111.0 H Carbon Dioxide Anion Gap BUN Creatinine Est GFR ( Amer) Est GFR (Non-Af Amer) Random Glucose Calcium Phosphorus Magnesium Total Bilirubin AST ALT Alkaline Phosphatase Troponin I NT-Pro-B Natriuret Pep Total Protein Albumin Globulin Albumin/Globulin Ratio Arterial Blood Potassium 3.3 L Venous Blood Potassium Urine Color Urine Appearance Urine pH Ur Specific [place] Urine Protein Urine Glucose (UA) Urine Ketones Urine Blood Urine Nitrate Urine Bilirubin Urine Urobilinogen Ur Leukocyte Esterase Urine RBC Urine WBC Ur Epithelial Cells Urine Bacteria Assessment & Plan - Assessment and Plan (Free Text) Assessment: 53 year old female with a PMH of COPD (supposed to be on home O2), DM2 and hypothyroidism who presents with shortness of breath and some dizziness the last 2 days. Labs reveal microcytic anemia, with H/H significantly lower than on prior admissions. # COPD exacerbation # Microcytic anemia, unknown baseline but significant drop from 2018 # Hypomagnesemia # hypothyroidism # DM2 # duodenitis Plan: - CXR reviewed - Prior chart reviewed - O2 2L NC ordered - start Duonebs JADEN and PRN - start mucomyst jaden - started on Pulmicort/Brovana - cont B12 supplements - cont folic acid supplements - ISS medium, check FS ACHS - cont Synthroid - cont Loratadine - started on cefepime empirically - started on solu-medrol 40mg IVP q12 - started on PPI IVP Q12 for possible UGI bleed - CLD started in case of possible endoscopy - Ferritin, iron/TIBC, transferrin, folate/b12 levels ordered - TSH ordered - vit D ordered - A1C, Glycomark and fructosamine ordered - celiac panel ordered due to prior biopsy results - Mag repleted; will f/u level - blood and urine cultures ordered, will f/u - rapid flu ordered - FOBT ordered - SCD for DVT ppx - GI consulted, recs appreciated - Pulm consulted, recs appreciated - further recs per Dr. Fuchs Case was reviewed and discussed with Dr. Fuchs
--- NOTE | 2019-01-02 12:27 | CARD ---
APPROVED REPORT Date of service: 01/02/2019 EKG Measurement Heart [id number] 88P [id number] <Conclusion> Sinus rhythm with short NE Otherwise normal ECG
[2019-01-02 12:49] LABS: HDL CHOLESTEROL 43 mg/dL (29-60)
[2019-01-02 12:59] LABS: LDL CHOLESTEROL 127 mg/dL (0-129)
--- NOTE | 2019-01-02 14:10 | US ---
Date of service: 01/02/2019 HISTORY: heavy menses COMPARISON: None available. TECHNIQUE: Endovaginal ultrasound examination of the pelvis was obtained. FINDINGS: UTERUS: Measures 11.6 x 4.9 x 6.1 cm. Normal in size and appearance. No fibroid or other mass lesion seen. ENDOMETRIUM: Measures 5.8 mm in diameter. Unremarkable. CERVIX: No cervical abnormality identified. RIGHT OVARY: Measures 2.6 x 2.4 x 3.2 cm. No solid mass. Normal flow. LEFT OVARY: Was not visualized therefore cannot be evaluated. FREE FLUID: No significant free fluid noted. OTHER FINDINGS: None. IMPRESSION: Limited study. The endovaginal study is limited. The left ovary is not visualized in this study.
[2019-01-02 15:09] LABS: FREE T4 1.11 ng/dL (0.78-2.19)
[2019-01-02] MEDS: Acetylcysteine 20% Inhal Soln (4ml) IH SCH ×2 (15:14→20:53)
[2019-01-02 15:27] LABS: HEMOGLOBIN 8.8 g/dL (12.0-16.0); MEAN CELL VOLUME 74.5 fl (80.0-105.0); MEAN CORPUSCULAR HEMOGLOBIN 21.4 pg (25.0-35.0); MEAN CORPUSCULAR HGB CONC 28.7 g/dl (31.0-37.0); MEAN PLATELET VOLUME 9.9 fl (7.0-11.0); RBC 4.12 10^6/uL (3.5-6.1); RED CELL DISTRIBUTION WIDTH 18.7 % (11.5-14.5); WHITE BLOOD COUNT 10.2 10^3/uL (4.5-11.0)
[2019-01-02 15:32] LABS: VENOUS BLOOD GAS BASE EXCESS -5.7 mmol/L (0.0-2.0); VENOUS BLOOD GAS PO2 50 mm/Hg (30-55); VENOUS BLOOD PH 7.38 (7.32-7.43)
[2019-01-02] MEDS: Cefepime IV 2 gm in NS 2 GM/100 ML BAG IVPB SCH ×2 (15:39→22:36)
--- NOTE | 2019-01-02 16:33 | CON ---
DATE OF CONSULTATION: 01/02/2019 GASTROENTEROLOGY CONSULTATION REQUESTING PHYSICIAN: Dr. Fuchs. REASON FOR CONSULTATION: I have been asked to see this 53-year-old female with multiple comorbidities including COPD, hypothyroidism, diabetes mellitus, chronic anemia, who comes to the hospital with increasing shortness of breath, dizziness, and cough with white sputum production over the last 2 days. I have been asked to see this patient for anemia. The patient states that she has had intermittent "dark stools" over the last 2 weeks. She denies any abdominal pain, nausea, or vomiting, chest pain or palpitations. The patient states that she had an upper endoscopy approximately 3 months ago at [facility], which revealed peptic ulcer disease. She also has chronic GERD. The patient has had numerous admissions for exacerbation of COPD and is being seen by Dr. Barrera as an outpatient. The patient has a history of chronic anemia with recent menorrhagia. She was also told that she has polycystic ovarian syndrome. PAST MEDICAL HISTORY: Notable for COPD, hypothyroidism, type 2 diabetes mellitus, peptic ulcer disease, chronic anemia, polycystic ovarian syndrome. PAST SURGICAL HISTORY: Notable for tubal ligation, , right leg surgery. SOCIAL HISTORY: She quit cigarette smoking about a year ago. She consumes alcohol socially. She works as a transportation specialist. FAMILY HISTORY: Notable for diabetes mellitus, gastric cancer. MEDICATIONS AT HOME: Include Levoxyl, lisinopril, glipizide, metformin, loratadine, vitamin D with folic acid and B12, Ventolin, and albuterol inhalers on home oxygen. REVIEW OF SYSTEMS: Fourteen-point review of systems is notable for shortness of breath with white sputum production. PHYSICAL EXAMINATION: GENERAL: Young female, lying in bed, in no acute distress. VITAL SIGNS: Reveal a temperature of 98.6, blood pressure 122/71, heart rate of 82. HEENT: Reveals sclerae to be white. Conjunctivae pale. NECK: Supple. CHEST: Reveals scattered rhonchi bilaterally. HEART: Exam reveals regular rate and rhythm. ABDOMEN: Obese, soft, nontender. EXTREMITIES: Show no edema. LABORATORY DATA: Revealed a white blood cell count of 9.8, hemoglobin 8.8. Chemistries reveal BUN of 11, creatinine 0.7, blood sugar 203, phosphorus 2.2, magnesium 1.5, iron saturation is 6, AST 39. IMPRESSION: A 53-year-old female admitted to the hospital with one of many hospitalizations for exacerbation of chronic obstructive pulmonary disease. She has chronic anemia. Her BUN is normal. She was recently diagnosed with peptic ulcer disease. She does admit to periodic dark stools for the last several weeks, but denies any abdominal pain. Clinically, the patient does not have an active gastrointestinal bleed. Her BUN is normal. She was diagnosed with an ulcer several months ago at [facility]. RECOMMENDATIONS: 1. We will give IV iron. 2. Continue Protonix 40 mg once a day. 3. Follow serial hematocrits. 4. We will request a pelvic and transvaginal ultrasound. 5. We will advance diet, if there is no clinical evidence of GI bleeding. Leo Payne MD
[2019-01-02 16:57] LABS: TRANSFERRIN 307.19 mg/dL (206-381)
[2019-01-02 17:24] LABS: FERRITIN 6.1 ng/mL
[2019-01-02] MEDS: Insulin Lispro (humaLOG) MEDIUM Coverage SC SCH ×2 (17:26→22:36)
[2019-01-02 17:54] LABS: FOLATE > 20.0 ng/mL
[2019-01-02] MEDS: Potassium & Sodium Phosphate PO SCH ×2 (18:38→22:38)
[2019-01-02] MEDS: Magnesium Oxide 400 mg Tab UD PO SCH (18:39)
[2019-01-02] MEDS ORDERED: Budesonide 0.25 mg/2 ml Inhal Susp UD IH SCH (20:00)
[2019-01-02 20:06] VITALS: BMI 37.2
[2019-01-02] MEDS ORDERED: Pneumococcal 23-Valent Vaccine IM ONE (20:07)
[2019-01-02] MEDS: Arformoterol 15 mcg/2 ml Inh Sol IH SCH (20:54)
[2019-01-02] MEDS ORDERED: MethylPREDNISolone 40 mg Vial IVP SCH (22:00)
--- NOTE | 2019-01-03 01:16 | HP ---
DATE OF EXAM: 01/02/2019 HISTORY OF PRESENT ILLNESS: The patient is a 53-year-old female who presented to the [facility] emergency room who presented with shortness of breath for 2 days. The patient states that she was recently hospitalized until last week at [facility] for asthma exacerbation, was admitted for 2 days, and was then discharged on Medrol pack and antibiotic, but the patient's symptoms rebounded and the patient developed worsening shortness of breath in the last 2 days with lightheadedness and with cough. The patient also reports dark stool and melena. REVIEW OF SYSTEMS: A 14-system review as pertinent for above. CODE STATUS: Full code. ALLERGIES: POLLEN EXTRACT. Height is 5 feet 3 inches. Weight is 210. BMI 37.2. HOME MEDICATIONS: Zestril 2.5 mg daily, Ventolin HFA, Synthroid 25, omeprazole, Glucotrol 5 mg daily, metformin 500 mg 2 tablets twice a day, which is 1000 mg twice a day, and DuoNeb nebulizer. SOCIAL HISTORY: Positive for smoking. Positive for alcohol. Denies communicable transmissible disease. OCCUPATIONAL HISTORY: The patient is a senior interaction designer. FAMILY HISTORY: Positive for diabetes, hypertension, and gastric cancer. PAST MEDICAL AND SURGICAL HISTORY: History of diabetes, history of hypertension, history of asthma, history of chronic obstructive pulmonary disease, history of hypothyroidism, history of gastric ulcers, history of gastroesophageal reflux disease, history of chronic obstructive pulmonary disease, history of seizure as a child, history of section, history of tubal ligation, history of nicotine dependence, history of type 2 diabetes mellitus, history of endoscopy was done in 2012 showing duodenitis, gallbladder polyps, history of fatty liver, history of right leg orthopedic surgery, history of social alcohol use, and former tobacco use. The patient's past medical history is significant for asthma, history of obesity, history of prominent ovaries, history of contracted gallbladder, history of echocardiogram done in 07/2018 showing ejection fraction of 62%, history of trace tricuspid regurgitation, history of normal stress test done in 11/2017, history of elevated body mass index, history of mild pulmonary hypertension with right ventricular systolic pressure of 41 mmHg, and history of trace mitral regurgitation. Past medical history is significant for endoscopy, endoscopic ultrasound, history of duodenitis, history of gallbladder polyp, history of suspected common bile duct sludge, and history of fatty liver. PHYSICAL EXAMINATION: GENERAL: The patient was seen in the stretcher number 6 in the emergency room. The patient is comfortable at present. VITAL SIGNS: T-max 98.9, heart rate 82 and 88, blood pressure 133/71, 126/83, respirations 18, and O2 sat 100% on nasal cannula. HEENT: Head; normocephalic and atraumatic. HEENT examination shows pale conjunctivae. Dry oral mucosa. NECK: No neck rigidity. CHEST: Kyphosis. LUNGS: Shows positive rhonchi. Positive wheezing. Anterior posterior lung lilly bilaterally. CARDIOVASCULAR: S1 and S2, regular rhythm. Questionable soft systolic murmur left sternal border, right second intercostal space, left second intercostal space. ABDOMEN: Soft. Positive bowel sounds. Protuberant abdomen. GENITALIA: Female. RECTAL: Deferred. EXTREMITIES: Shows no pitting edema. No calf tenderness. No Homans' sign. NEUROLOGIC: The patient is alert, awake, and oriented x3. He is able to move upper and lower extremity without assistance. Gait examination is not tested. VASCULAR: Palpable pulses. MUSCULOSKELETAL: Shows a body mass index of 37.2. PSYCHIATRIC: Negative for any anxiety or depression. Negative for auditory or visual hallucination. Negative for suicidal or homicidal ideation. DIAGNOSTIC DATA: On 01/02/2019; WBC 9.8 and 10.2, hemoglobin and hematocrit 8.8 and 30.7, MCV 74.5, and platelet 206 and 217. PT/PTT 11.6 and 26.5. The patient's initial VBG shows a lactate of 4.5, repeat and repeat lactate 4.1. ABG which was done 28% FIO2, pH of 7.46, pCO2 of 27, pO2 of , bicarb 19, and saturation 99%. The patient's chemistry sodium 141, potassium 4.2, chloride 107, CO2 of 23, anion gap 15, BUN 11, creatinine 0.7, GFR greater than 60, glucose 203, hemoglobin A1c 9.8, phosphorus 2.2, magnesium 1.5, and AST 39. Troponin is negative. ProBNP 69.2, cholesterol 173, LDL 127, iron 27, and saturation 6. Urine protein 30, trace ketones, trace leukocyte esterase, many epithelial cells, and many bacteria. Blood type B+. The patient had a chest x-ray was done, no active disease. The patient was ordered transvaginal ultrasound by the Gastroenterology, which shows nonvisualized left ovary. EKG was done. EKG shows sinus rhythm, short MT. The patient was treated in the emergency room by the physician commercial real estate assistant. The patient was given nebulizer treatments. The patient was given IV steroid and Solu-Medrol 125 mg. The patient was given magnesium sulfate. The patient was advised to be admitted. IMPRESSION AND PLAN: 1. Acute exacerbation of bronchial asthma, asthmatic bronchitis, and chronic obstructive pulmonary disease. 2. Microcytic anemia with history of melena. 3. History of hypertension, type 2 diabetes, hypothyroidism, and history of duodenitis. 4. History of pulmonary hypertension. 5. Obesity. 6. Lactic acidosis, etiology undetermined. 7. Iron-deficiency anemia. 8. Hypercholesteremia with elevated LDL. 9. Uncontrolled noninsulin-requiring diabetes mellitus with hemoglobin A1c of 9.8. 10. Hypophosphatemia and hypomagnesemia. 11. Proteinuria, trace ketonuria, and bacteriuria. 12. B+ blood type. 13. Nonvisualized left ovary. 14. Hyperlipidemia. 15. Hypomagnesemia. 16. History of hypothyroidism. 17. Obesity. Plan at this time, the patient is to be admitted to [facility]. The patient has been ordered repeat labs, lipid panel has been ordered, B12, and folate. The patient has been ordered celiac disease profile, vitamin D 25-hydroxy, repeat CBC, blood cultures, VBG shock panel, and lactic acidosis. Lactic acid has been ordered. Procalcitonin level has been ordered. The patient has been ordered blood and urine cultures. CONSULTATION: Gastroenterology and Pulmonary. Rapid flu has been ordered. CURRENT MEDICATIONS: Mucomyst nebulizer 20% 4 mL every 6 hours with DuoNeb nebulizer every 6 hours, Brovana 15 mcg every 12 hours, Claritin 10 mg daily, doxycycline 100 mg IV every 12 hours, DuoNeb nebulizer every 6 hours [id number] every 2 hours p.r.n., folic acid 1 mg daily, Humalog medium dose sliding scale coverage with iron, Venofer 200 mg IV daily, Lipitor 40 mg daily, the patient received magnesium sulfate rider, cefepime 2 g IV every 8 hours, Protonix 40 IV every 12 hours, Pulmicort nebulizer 0.25 mg every 12 hours, the patient received 2 L of IV fluid, Solu-Medrol 125 mg was given the ER, the patient started on Solu-Medrol 40 mg IV every 12 hours, and Synthroid 25 mcg daily. The patient received vancomycin 1 g in the ER. The patient is also received Zosyn 3.375 g IV in the ER. The patient has been ordered consistent carbohydrate diet, fingerstick blood sugar, and SCDs. The patient is started on both GI and DVT prophylaxis. The patient has been explained about the details of her medical condition, need for hospitalization, need for further diagnostic therapeutic intervention, need for GI and Pulmonary evaluation and further management were discussed and explained to the patient at length in the emergency room. The patient was seen and evaluated in bed 6 in the emergency room. Dictated and electronically signed, not read. Víctor Fuchs MD
[2019-01-03] MEDS: Acetylcysteine 20% Inhal Soln (4ml) IH SCH ×4 (01:39→21:36)
[2019-01-03] MEDS: Albuterol-Ipratrop 3 mg / 0.5 (3 ml) UD IH SCH ×4 (01:39→21:37)
[2019-01-03] MEDS: Levothyroxine 25 MCG TAB PO SCH (06:16)
[2019-01-03] MEDS: Cefepime IV 2 gm in NS 2 GM/100 ML BAG IVPB SCH ×3 (06:16→22:36)
[2019-01-03 06:30] LABS: BASO # 0.01 K/mm3 (0.0-2.0); BASO % 0.1 % (0.0-3.0); HEMOGLOBIN 8.4 g/dL (12.0-16.0); LYMPH # 1.3 (1.2-3.4); LYMPH % 7.3 % (22.0-35.0); MEAN CELL VOLUME 75.3 fl (80.0-105.0); MEAN CORPUSCULAR HEMOGLOBIN 20.9 pg (25.0-35.0); MEAN CORPUSCULAR HGB CONC 27.8 g/dl (31.0-37.0); MEAN PLATELET VOLUME 10.5 fl (7.0-11.0); MONO # 0.7 (0.1-0.6); MONO % 3.5 % (1.0-6.0); RBC 4.01 10^6/uL (3.5-6.1); RED CELL DISTRIBUTION WIDTH 19.3 % (11.5-14.5); WHITE BLOOD COUNT 18.4 10^3/uL (4.5-11.0)
[2019-01-03 07:05] LABS: FREE T4 0.91 ng/dL (0.78-2.19)
[2019-01-03] MEDS ORDERED: Pantoprazole 40 mg EC Tab PO SCH (07:30)
[2019-01-03 07:43] LABS: ALB/GLOB RATIO 1.3 (1.1-1.8); ALBUMIN 3.8 g/dL (3.0-4.8); ALT/SGPT 41 U/L (7-56); AST/SGOT 39 U/L (14-36); BILIRUBIN,DIRECT 0.3 mg/dL (0.0-0.4); BLOOD UREA NITROGEN 9 mg/dL (7-21); CALCIUM 8.9 mg/dL (8.4-10.5); GFR NON-AFRICAN AMERICAN > 60
[2019-01-03] MEDS: Insulin Lispro (humaLOG) MEDIUM Coverage SC SCH (07:52)
[2019-01-03] MEDS: Budesonide 0.5 mg/2 ml Inhal Susp UD IH SCH ×2 (08:08→21:37)
[2019-01-03] MEDS: Arformoterol 15 mcg/2 ml Inh Sol IH SCH ×2 (08:08→21:37)
--- NOTE | 2019-01-03 08:34 | CON ---
DATE OF CONSULTATION: 01/03/2019 PULMONARY CONSULTATION REFERRING PHYSICIAN: Víctor Fuchs MD REASON FOR CONSULTATION: Chronic obstructive pulmonary disease. HISTORY OF PRESENT ILLNESS: The patient is a 53-year-old female, with past medical history significant for chronic obstructive pulmonary disease, asthma, hypertension, diabetes mellitus, peptic ulcer disease, who presents to [facility] with worsening shortness of breath at rest, dyspnea on exertion, cough, and minimal sputum production for the past 2 days. There is no history of chest pain, coughing up of blood, or chest pain - made worse with deep respirations. There is no history of temperatures, chills or infectious exposure. There is no history of night sweats, weight loss or appetite change prior to the above events. No history of leg or calf pains. No history of syncope or diaphoresis. No history of recent travel or trauma. REVIEW OF SYSTEMS: The patient does state to dark stools at home. No nausea or vomiting. No abdominal pain. No acute urinary symptoms. Rest of the review of systems is negative. ALLERGIES: NO KNOWN DEMONSTRABLE ALLERGIES. SOCIAL HISTORY: Positive for former tobacco usage. No alcohol. FAMILY HISTORY: No inheritable diseases. HOME MEDICATIONS: Include B12, Claritin, Glucotrol, Glucophage, DuoNebs, Zestril, Synthroid, omeprazole. PHYSICAL EXAMINATION: GENERAL: The patient appears comfortable at rest. She is not short of breath. VITAL SIGNS: Temperature is 98, pulse is 83, respirations 18, blood pressure 129/70. Oxygen saturation on nasal cannula - 97%. HEENT: Normocephalic, atraumatic. NECK: No JVD. CARDIOVASCULAR: Positive S1, S2. No S3 gallop. LUNGS: Decreased breath sounds at the bases. Mild bilateral rhonchi. No wheezing. EXTREMITIES: No clubbing, cyanosis or edema. Calves are nontender to palpation. GASTROINTESTINAL: Abdomen is soft, nontender and nondistended. Bowel sounds are positive. SKIN: No acute rash. NEUROLOGIC: Exam limited at the present time. PERTINENT LABORATORY DATA: Chest x-ray was done yesterday and reviewed. There is no acute disease noted. CBC: White count 18.4K, hemoglobin 8.4, hematocrit 30.2, platelets of 215,000. Initial WBC count - 9.8K (normal). Arterial blood gas was done yesterday morning on nasal cannula. Results are: PH 7.46, pCO2 of 27, pO2 of 116. Complete metabolic profile: Glucose 203, phosphorus 2.2, magnesium 1.5, AST 39. Rest of the metabolic profile is within normal limits. IMPRESSION: 1. Acute/recurrent bronchitis. 2. Chronic obstructive pulmonary disease. 3. Asthma. 4. Diabetes mellitus. 5. Anemia. PLAN: I did discuss the case with the night nurse at length. I have also reviewed the chart at length, and discussed the case with the patient at length. The patient presents to [facility] with a 2-day history of worsening pulmonary symptoms. I did review the chest x-ray as above. There is no active disease noted. On physical exam, the patient is in no significant bronchospasm noted. In addition, there is no significant alveolar arterial gradient. Lastly, as per the nurse, the finger sticks have been running close to 500. I will continue with the current nebulizer treatments and try decreasing the intravenous steroids this morning. This should help her blood sugars. The patient is currently on antibiotic therapy. There are no temperatures by history. Initial white count was normal. Input by Gastroenterology (Dr. Payne) is also noted. The patient does state to feeling much better this morning, and is clinically improved. Additional pulmonary intervention will be based on the clinical status of the patient. I will discuss the above with Dr. Fuchs. Thank you very much for this pulmonary consultation. Manas Ruelas MD MTDD
[2019-01-03] MEDS: Potassium & Sodium Phosphate PO SCH ×4 (09:50→22:38)
[2019-01-03] MEDS: Magnesium Oxide 400 mg Tab UD PO SCH ×2 (09:50→17:20)
[2019-01-03] MEDS: MethylPREDNISolone 40 mg Vial IVP SCH ×2 (09:50→22:37)
[2019-01-03] MEDS: Pantoprazole 40 mg EC Tab PO SCH ×2 (09:54→17:19)
[2019-01-03] MEDS ORDERED: Insulin Lispro (HUMAlog) HIGH Coverage SC SCH (11:30)
[2019-01-03] MEDS: Insulin Lispro (HUMAlog) HIGH Coverage SC SCH ×3 (11:31→22:37)
--- NOTE | 2019-01-03 14:17 | PN ---
DATE: 01/03/2019 SUBJECTIVE: The patient is in room 267, bed 2. Overnight nurse's notes were reviewed. The patient had episodic shortness of breath and wheezing, which according to the patient has improved since admission. REVIEW OF SYSTEMS: A 14-system review was done, pertinent positive and negative as dictated above. OBJECTIVE: VITAL SIGNS: T-max 98, heart rate 71-83, telemetry normal sinus rhythm, blood pressure 129/70, respirations 18, O2 sat 97%. HEENT: Head examination normocephalic, atraumatic. HEENT examination shows pale conjunctivae. Anicteric sclerae. No oropharyngeal lesion. No neck rigidity. CHEST: Kyphosis. LUNGS: Shows positive wheezing, rhonchi bilaterally. CARDIOVASCULAR: Shows S1 and S2, regular rhythm. Questionable soft systolic murmur, left sternal border, right second intercostal space, left second intercostal space. ABDOMEN: Soft, positive bowel sounds. No palpable hepatosplenomegaly. Obese abdomen. GENITALIA: Female. RECTAL: Deferred. EXTREMITIES: Shows no pitting edema, no calve tenderness, no Homans signs. MUSCULOSKELETAL: Shows an elevated body mass index. NEUROLOGIC: The patient is alert, awake, oriented x3. Cranial nerves II-XII intact and limited. Gait examination is not tested. VASCULAR: Palpable pulses. PSYCHIATRIC: Negative for anxiety, depression. Negative for auditory, visual hallucination. Negative for suicidal, homicidal ideation. DIAGNOSTICS: On January 03, WBC 18.4, hemoglobin/hematocrit 8.4/30.2, platelet 215, granulocytes 86% segs. Sodium 138, potassium 4.8, chloride 108, CO2 of 18, BUN 9, creatinine 0.6, glucose 407, calcium 8.9, phosphorus 2.3, magnesium 2.2 and LFTs are within normal limits. Iron studies shows decreased iron, decreased iron saturation, decreased ferritin. Cholesterol 173, LDL 127, HDL 43. Urinalysis shows proteinuria, pyuria, bacteriuria. Lactic acid is still elevated at 3.6. IMPRESSION: 1. Acute exacerbation of asthmatic bronchitis and acute exacerbation of chronic obstructive pulmonary disease with bronchospasm, wheezing and shortness of breath. 2, Steroid-induced leukocytosis and granulocytosis. 3. Microcytic iron-deficiency anemia. 4. History of gastric ulcers. 5. Steroid-induced hyperglycemia with uncontrolled type 2 [id number] diabetes mellitus. 6. Hypercholesteremia with elevated LDL. 7. Iron deficiency. 8. Proteinuria, pyuria, bacteriuria. 9. Lactic acidosis. 10. Questionable systemic inflammatory response syndrome. PLAN: At this time, the patient is to be continued on therapeutic intervention as per the MAR of today including bronchodilators, expectorant, IV steroids, IV antibiotics. The patient also will be continued on pharmacological, non-pharmacological GI and DVT prophylaxis. The patient has been ordered out of bed to chair, physical therapy, occupational therapy, ambulation therapy, gait training ordered. The patient's further management will be dependent upon the patient's clinical condition, hemodynamic status and as per the patient response to therapeutic intervention as per the patient's diagnostic test results and as per recommendation by all the physicians involved in the care of the patient. If the patient symptoms does not resolve in the next 24 hours, we will consider getting a CAT scan of the chest, abdomen and pelvis to evaluate the patient's further medical condition. The patient is updated about her condition, diagnosis, treatment plan, further need for diagnostic therapeutic intervention. Discussed and explained to the patient at length and all questions, concerns answered. Dictated and electronically signed, not read. Signing off Víctor Fuchs MD. Víctor Fuchs MD
--- NOTE | 2019-01-03 15:45 | CT ---
Date of service: 01/03/2019 PROCEDURE: CT Chest, Abdomen and Pelvis without intravenous contrast HISTORY: evaluate anemia COMPARISON: 04/14/2013 TECHNIQUE: Radiation dose: Total exam DLP = 2038.46 mGy-cm. This CT exam was performed using one or more of the following dose reduction techniques: Automated exposure control, adjustment of the mA and/or kV according to patient size, and/or use of iterative reconstruction technique. FINDINGS: CT CHEST WITHOUT CONTRAST: LUNGS: Clear. No nodule, mass or consolidation. MEDIASTINUM: Unremarkable. Normal caliber aorta and pulmonary arterial trunk. Normal size heart. LYMPH NODES: Unremarkable. PLEURA: Unremarkable. No pneumothorax. No pleural fluid. BONES: Unremarkable. OTHER FINDINGS: None. CT ABDOMEN AND PELVIS: LIVER: Severe fatty infiltration of the liver GALLBLADDER AND BILE DUCTS: Unremarkable. PANCREAS: Unremarkable. No gross lesion or ductal dilatation. SPLEEN: Unremarkable. ADRENALS: Unremarkable. No mass. KIDNEYS AND URETERS: Unremarkable. No hydronephrosis. No solid mass. VASCULATURE: Aortic calcification. Unremarkable. No aortic aneurysm. BOWEL: Unremarkable. No obstruction. No gross mural thickening. APPENDIX: Normal appendix. PERITONEUM: Unremarkable. No free fluid. No free air. LYMPH NODES: Unremarkable. No enlarged lymph nodes. BLADDER: Unremarkable. REPRODUCTIVE: There is a prominent left ovary measuring 33 x 37 mm. This is unchanged. The right ovary measures 21 x 36 mm.. BONES: No acute fracture. OTHER FINDINGS: None. IMPRESSION: Severe fatty infiltration of the liver. No acute intra-abdominal or intrathoracic findings
[2019-01-03] MEDS: POLYETHYLENE GLYCOL 3350 17 GM/Dose PACKET PO SCH (17:21)
[2019-01-03] MEDS ORDERED: Insulin Human NPH 1 UNITS/0.01 ML SC SCH (17:45)
[2019-01-04] MEDS: Acetylcysteine 20% Inhal Soln (4ml) IH SCH ×4 (02:35→20:31)
[2019-01-04] MEDS: Albuterol-Ipratrop 3 mg / 0.5 (3 ml) UD IH SCH ×4 (02:35→20:31)
[2019-01-04] MEDS: Levothyroxine 25 MCG TAB PO SCH (06:33)
[2019-01-04] MEDS: Cefepime IV 2 gm in NS 2 GM/100 ML BAG IVPB SCH ×3 (06:39→21:17)
[2019-01-04] MEDS ORDERED: Insulin Human NPH 1 UNITS/0.01 ML SC SCH ×3 (07:30→17:45)
[2019-01-04] MEDS: Budesonide 0.5 mg/2 ml Inhal Susp UD IH SCH ×2 (07:30→20:31)
[2019-01-04] MEDS: Arformoterol 15 mcg/2 ml Inh Sol IH SCH ×2 (07:30→20:31)
[2019-01-04 08:30] LABS: BASO # 0.01 K/mm3 (0.0-2.0); HEMOGLOBIN 8.4 g/dL (12.0-16.0); LYMPH # 2.4 (1.2-3.4); LYMPH % 10.7 % (22.0-35.0); MEAN CELL VOLUME 74.4 fl (80.0-105.0); MEAN CORPUSCULAR HEMOGLOBIN 20.8 pg (25.0-35.0); MEAN PLATELET VOLUME 10.5 fl (7.0-11.0); MONO # 0.9 (0.1-0.6); MONO % 4.3 % (1.0-6.0); RBC 4.03 10^6/uL (3.5-6.1); RED CELL DISTRIBUTION WIDTH 19.4 % (11.5-14.5)
[2019-01-04 08:56] LABS: ALB/GLOB RATIO 1.3 (1.1-1.8); ALT/SGPT 44 U/L (7-56); AST/SGOT 39 U/L (14-36); BILIRUBIN,DIRECT 0.3 mg/dL (0.0-0.4); BLOOD UREA NITROGEN 13 mg/dL (7-21); GFR NON-AFRICAN AMERICAN > 60
--- NOTE | 2019-01-04 09:10 | PN ---
DATE: 01/04/2019 PULMONARY NOTE SUBJECTIVE: The patient appears comfortable this morning. She is not short of breath at rest. PHYSICAL EXAMINATION VITAL SIGNS: Temperature is 98.1, pulse 86, respirations 18 and blood pressure 133/65. Oxygen saturation on nasal cannula - 98%. HEENT: Normocephalic and atraumatic. No JVD. CARDIOVASCULAR: Positive S1 and S2. No S3 gallop. LUNGS: Improved breath sounds at the bases. Still with mild bilateral rhonchi. No wheezing. EXTREMITIES: No clubbing, cyanosis or edema. Calves are nontender to palpation. GI: Abdomen is soft, nontender and nondistended. Bowel sounds are positive. SKIN: No acute rash. NEUROLOGIC: Exam limited at the present time. PERTINENT LABORATORY DATA: CAT scan of the chest was done yesterday and reviewed. The lungs are clear. There is no evidence of nodule, mass or consolidation. IMPRESSION: 1. Acute/recurrent bronchitis. 2. Chronic obstructive pulmonary disease. 3. Asthma. 4. Diabetes mellitus. 5. Anemia. PLAN: The patient appears comfortable this morning. She is not short of breath at rest. She does state to feeling better overall. On physical exam, mild bronchospasm persists. However, there is no significant alveolar-arterial gradient. Oxygen saturation on nasal cannula is now 98%. I will continue the current nebulizer treatments and intravenous steroids (decreased yesterday) for now. The patient remains on antibiotic therapy. There are no temperatures noted. There was a leukocytosis on yesterday's labs - probably secondary to the steroids. Input by [facility] (Dr. Payne) is also noted. Clinical status of the patient is certainly improved - compared to the initial presentation. The patient is advised to be out of bed as much as possible. I will discuss the above with Dr. Fuchs. Manas Ruelas MD MTDD
[2019-01-04] MEDS: Insulin Lispro (HUMAlog) HIGH Coverage SC SCH ×4 (09:16→22:16)
[2019-01-04] MEDS: MethylPREDNISolone 40 mg Vial IVP SCH ×2 (09:17→21:17)
[2019-01-04] MEDS: Potassium & Sodium Phosphate PO SCH ×4 (09:17→21:17)
[2019-01-04] MEDS: Magnesium Oxide 400 mg Tab UD PO SCH ×2 (09:18→17:17)
[2019-01-04] MEDS: Pantoprazole 40 mg EC Tab PO SCH ×2 (09:18→17:17)
[2019-01-04] MEDS: POLYETHYLENE GLYCOL 3350 17 GM/Dose PACKET PO SCH ×2 (09:25→17:10)
[2019-01-04 10:06] LABS: VENOUS BLOOD GAS BASE EXCESS -5.4 mmol/L (0.0-2.0); VENOUS BLOOD GAS PO2 48 mm/Hg (30-55); VENOUS BLOOD PH 7.36 (7.32-7.43)
[2019-01-04 11:43] LABS: VENOUS BLOOD GAS BASE EXCESS -4.1 mmol/L (0.0-2.0); VENOUS BLOOD GAS PO2 107 mm/Hg (30-55); VENOUS BLOOD PH 7.39 (7.32-7.43)
--- NOTE | 2019-01-04 13:02 | PN ---
DATE: 01/04/2019 SUBJECTIVE: The patient is seen in room 565, bed 2. The patient has been transferred out of the telemetry to 565, bed 2. The patient is lying in the bed, getting nebulizer treatment. The patient was advised to sit up in order to get optimum nebulizer medication treatment and at delivery. The patient's overnight nurse's notes were reviewed. PHYSICAL EXAMINATION: VITAL SIGNS: T-max 98.3. Telemetry shows sinus rhythm, heart rate 86, 87 and 79, blood pressure 133/65, 124/63, 110/58, respirations 18, O2 sat 90% to 97%. HEENT: Head examination normocephalic, atraumatic. HEENT examination shows pinkish pale conjunctivae. Anicteric sclerae. No oropharyngeal lesion. No neck rigidity. CHEST: Kyphosis. LUNGS: Examination shows improved air entry, decreased wheezing and rhonchi. CARDIOVASCULAR: S1, S2, regular rhythm. No audible murmur, gallop or rub. ABDOMEN: Soft, positive bowel sound, no palpable hepatosplenomegaly. GENITALIA: Female. RECTAL: Examination is deferred. EXTREMITY: No pitting edema, no calf tenderness, no Homans' sign. NEUROLOGIC: The patient is alert, awake, oriented x3, is able to move upper and lower extremity without assistance. Gait examination is not tested. MUSCULOSKELETAL: Examination shows a body mass index of 38. Cranial nerves II through XII intact am DIAGNOSTICS: 01/04/2019, diagnostic data shows WBC 22,000, hemoglobin and hematocrit 8.4 and 30, MCV 74, platelet 228, granulocytes 85% segs. Sodium 138, potassium 4.6, chloride 106, CO2 of 20, anion gap 16, BUN 13, creatinine 0.7, GFR greater than 60, glucose 314. Lactic acid is 3.6, calcium 9, magnesium 2.2. Fingerstick blood sugar is 350, 360, 390, 397, 417, 400, 492. LFTs are within normal limit. Urinalysis, 30 protein, trace ketones, trace leukocyte esterase, many bacteria. Stool occult blood negative. The patient's transglutaminase IgA antibody positive and antibodies detected. Endomysial IgA antibody titer and Endomysial IgA antibody is pending. Celiac disease interpretation is pending. Blood cultures, no growth. Blood type B+. CT of the chest, abdomen and pelvis. CT of the chest was negative. Liver shows severe fatty infiltration of the liver. Prominent left ovary changed. EKG shows sinus rhythm. IMPRESSION: 1. Acute exacerbation of asthmatic bronchitis, bronchial asthma, and chronic obstructive pulmonary disease with shortness of breath and wheezing. 2. Microcytic iron-deficiency anemia. 3. Morbid obesity with body mass index of 38. 4. Leukocytosis with granulocytosis 5. Lactic acidosis. 6. Persistent hyperglycemia secondary to intravenous steroid and history of diabetes mellitus, uncontrolled with hemoglobin A1c of 9.8 and fructosamine of 245. 7. Hypercholesteremia with elevated LDL. 8. Proteinuria, ketonuria, pyuria, bacteriuria. 9. Positive tissue transglutaminase IgA antibody detected with a titer of 12. 10. B+ blood type. 11. History of hypertension, type 2 diabetes mellitus, history of hypothyroidism and history of duodenitis. 12. Severe hepatic steatosis and severe fatty infiltration of the liver. 13. Prominent left ovary measuring 33 x 37 mm, unchanged. 14. History of melena. 15. History of endoscopy done recently which shows peptic ulcer disease, history of chronic gastroesophageal reflux disease. 16. Constipation. 17. Insulin-requiring diabetes mellitus. 18. Hyperlipidemia. 19. Hypomagnesemia. 20. Headache. PLAN: At this time, the patient has been ordered repeat labs. The patient's celiac disease panel is pending. Urine cultures results are pending. Current consultation, Gastroenterology and Pulmonary. The patient is currently on Mucomyst nebulizer with DuoNeb nebulizer every 6 hours [id number], Actigall 300 twice a day, Brovana nebulizer 15 mcg every 12 hours, Claritin 10 mg daily, Colace 100 mg three times a day, doxycycline 100 mg IV every 12 hours, DuoNeb nebulizer every 6 hours [id number] every 2 hours p.r.n., folic acid 1 mg daily, Humalog high-dose sliding scale coverage before meals and at bedtime, NPH 25 units with breakfast and 25 units with supper, Venofer 200 mg IV daily, Lipitor 40 mg daily, magnesium oxide 400 twice a day, cefepime 2 g IV every 8 hours, MiraLax 17 g twice a day, Neutra-Phos 1 packet four times a day, Protonix 40 mg twice a day, Pulmicort nebulizer 0.5 mg every 12 hours, Senokot 8.6 mg daily, Solu-Medrol decreased to 30 mg IV every 12 hours , Synthroid 25 mcg daily, Tessalon Perles 200 three times a day, Tylenol 650 p.o. every 6 hours p.r.n., vitamin B12 at 1000 mcg p.o. daily, Zofran 4 mg IV every 4 hours p.r.n., incentive spirometry, oxygen 2 liters, consistent carbohydrate. The patient has been ordered pharmacological and non-pharmacological GI and DVT prophylaxis, occupational therapy, physical therapy ordered. The patient will continue the above therapeutic intervention. The patient will be ordered repeat labs for the morning. The patient's further management will be dependent upon the patient's clinical condition, hemodynamic status and as per the patient's response to therapeutic intervention as per the patient's diagnostic test results and as per recommendation by all the physicians involved in the care of the patient. The patient updated about her condition, diagnosis, treatment plan, management plan at length. The patient, as mentioned, has been started on ursodiol 300 mg twice a day for fatty liver. The patient has been advised weight loss of at least 50 to 60 pounds. The patient updated about her condition, diagnosis, test results at length. All questions concerned answered. Dictated and electronically signed, not read. Víctor Fuchs MD
--- NOTE | 2019-01-04 13:32 | PN ---
DATE: 01/04/2019 SUBJECTIVE: The patient is sitting in bed comfortable. Her breathing is easy. She has less cough and shortness of breath. She denies any rectal bleeding or melena. OBJECTIVE: VITAL SIGNS: Reveal temperature of 98.5, blood pressure 110/58, heart rate 100. HEENT: Reveals sclerae to be white. Conjunctivae pale. NECK: Supple. CHEST: Reveal lungs to be clear. HEART: Reveals a regular rate and rhythm. ABDOMEN: Soft, flabby, nontender, no mass. EXTREMITIES: Show no edema. LABORATORY DATA: Reveal white blood cell count 22,000, hemoglobin 8.4. Chemistries reveal blood sugar 350. AST is 39. CT scan of the abdomen and pelvis show severe fatty infiltration of the liver. IMPRESSION: 1. Chronic anemia. 2. Leukocytosis, probably related to intravenous steroids. 3. Fatty liver. Note, stool for occult blood was negative. RECOMMENDATIONS: 1. Elective colonoscopy when her respiratory status stabilizes. 2. Weight loss. The patient was informed to follow up with her outside still operator for the colonoscopy. Leo Payne MD MTDHerbert
[2019-01-04 20:04] LABS: GLYCOMARK(R) 2.6 mcg/mL (7.5-28.4)
[2019-01-05] MEDS: Acetylcysteine 20% Inhal Soln (4ml) IH SCH ×4 (02:42→20:36)
[2019-01-05] MEDS: Albuterol-Ipratrop 3 mg / 0.5 (3 ml) UD IH SCH ×4 (02:42→20:37)
[2019-01-05] MEDS: Levothyroxine 25 MCG TAB PO SCH (05:39)
[2019-01-05] MEDS ORDERED: Insulin Human NPH 1 UNITS/0.01 ML SC SCH (06:32)
[2019-01-05 07:42] LABS: BASO # 0.01 K/mm3 (0.0-2.0); HEMOGLOBIN 8.6 g/dL (12.0-16.0); LYMPH # 3.1 (1.2-3.4); LYMPH % 14.4 % (22.0-35.0); MEAN CELL VOLUME 75.4 fl (80.0-105.0); MEAN CORPUSCULAR HEMOGLOBIN 21.2 pg (25.0-35.0); MEAN CORPUSCULAR HGB CONC 28.1 g/dl (31.0-37.0); MEAN PLATELET VOLUME 10.4 fl (7.0-11.0); MONO # 1.3 (0.1-0.6); RBC 4.06 10^6/uL (3.5-6.1); RED CELL DISTRIBUTION WIDTH 19.7 % (11.5-14.5); WHITE BLOOD COUNT 21.6 10^3/uL (4.5-11.0)
[2019-01-05] MEDS: Budesonide 0.5 mg/2 ml Inhal Susp UD IH SCH ×2 (07:53→20:37)
[2019-01-05] MEDS: Arformoterol 15 mcg/2 ml Inh Sol IH SCH ×2 (07:53→20:36)
[2019-01-05 08:08] LABS: ALB/GLOB RATIO 1.3 (1.1-1.8); ALBUMIN 3.9 g/dL (3.0-4.8); ALT/SGPT 38 U/L (7-56); AST/SGOT 29 U/L (14-36); BLOOD UREA NITROGEN 16 mg/dL (7-21); CALCIUM 9.1 mg/dL (8.4-10.5); GFR NON-AFRICAN AMERICAN > 60
--- NOTE | 2019-01-05 09:05 | PN ---
DATE: 01/05/2019 SUBJECTIVE: The patient appears very comfortable this morning. She is not short of breath at rest. PHYSICAL EXAMINATION: VITAL SIGNS: Temperature is 98, pulse 75, respirations 18/20, blood pressure 132/91. Oxygen saturation on nasal cannula 93%--95%. HEENT: Normocephalic, atraumatic. No JVD. CARDIOVASCULAR: Positive S1, S2. No S3 gallop. LUNGS: Much decreased/minimal rhonchi. No wheezing. EXTREMITIES: No clubbing, cyanosis or edema. Calves are nontender to palpation. GASTROINTESTINAL: Abdomen is soft, nontender and nondistended. Bowel sounds are positive. SKIN: No acute rash. NEUROLOGIC: Exam limited at the present time. IMPRESSION: 1. Acute/recurrent bronchitis. 2. Chronic obstructive pulmonary disease. 3. Asthma. 4. Diabetes mellitus. 5. Anemia. PLAN The patient appears very comfortable this morning. She is not short of breath at rest. She does state to feeling much, much better overall. On physical exam, her bronchospasm is much less this morning. There remains a mild increase in the alveolar arterial gradient. I will continue the current nebulizer treatments and decrease the intravenous steroids this morning. The patient remains on oral antibiotic therapy. There are no temperatures noted. Input by Dr. Payne (Gastroenterology) is also noted. Pulmonary status of the patient appears significantly improved overall. GI evaluation is ongoing. I will discuss the above with Dr. Fuchs. Manas Ruelas MD MTDD
[2019-01-05 09:11] LABS: ALB/GLOB RATIO 1.4 (1.1-1.8); BILIRUBIN,DIRECT 0.3 mg/dL (0.0-0.4)
[2019-01-05] MEDS: Magnesium Oxide 400 mg Tab UD PO SCH ×2 (10:01→17:30)
[2019-01-05] MEDS: Pantoprazole 40 mg EC Tab PO SCH ×2 (10:01→17:31)
[2019-01-05] MEDS: MethylPREDNISolone 40 mg Vial IVP SCH ×2 (10:01→21:49)
[2019-01-05] MEDS: POLYETHYLENE GLYCOL 3350 17 GM/Dose PACKET PO SCH ×2 (10:01→17:56)
[2019-01-05] MEDS: Insulin Lispro (HUMAlog) HIGH Coverage SC SCH ×4 (10:02→21:49)
[2019-01-05] MEDS: Insulin Human NPH 1 UNITS/0.01 ML SC SCH (10:03)
--- NOTE | 2019-01-05 12:20 | PN ---
DATE: 01/05/2019 SUBJECTIVE: The patient is seen lying in the bed in room 565, bed 2. The patient is doing nebulizer treatment. According to the nurse's reports, the patient was found to be eating outside food from [employer] yesterday and the day before. The patient has been counseled about strict diet compliance and medications compliance. The patient states that her breathing is better. REVIEW OF SYSTEMS: A 14-system review was done. PHYSICAL EXAMINATION VITAL SIGNS: T-max 98, heart rate 75, blood pressure 132/60, 132/91, respirations 22, O2 sat 93% to 95%. HEENT: Head examination normocephalic, atraumatic. HEENT examination shows pale conjunctivae. Anicteric sclerae. No oropharyngeal lesion. No neck rigidity. CHEST: Kyphosis. LUNGS: Shows decrease wheezing and rhonchi. CARDIOVASCULAR: S1 and S2, regular rhythm. No audible murmur, gallop or rub. ABDOMEN: Morbidly obese. Positive bowel sounds. GENITALIA: Female. RECTAL: Deferred. EXTREMITIES: Shows no pitting edema, no calve tenderness, no Homans' signs. NEUROLOGIC: The patient is alert, awake, oriented x3. Cranial nerves II-XII limited. Gait examination is not tested. DIAGNOSTICS: On January 05, WBC count 21.6, hemoglobin/hematocrit 8.6/30.6, platelet 220, granulocytes 79% segs. Lactic acid yesterday 4.2, 5.2, 4.1. Fingerstick blood sugar 309, 349, 404, 457. Sodium 137, potassium 4.8, chloride 104, CO2 of 25, anion gap 13, BUN 16, creatinine 0.7, GFR greater than 60, glucose 309, lactic acid is down to 2.7 from 3.6, calcium 9.1, phosphorus 4.1, magnesium 1.8. LFTs are normal. The patient's celiac disease profile shows 1:80 Endomysial IgA antibiotic titer with positive IgA Endomysial antibody and celiac disease interpretation is positive. IMPRESSION: 1. Questionable systemic inflammatory response syndrome. 2. Acute exacerbation of asthmatic bronchitis, bronchial asthma and chronic obstructive pulmonary disease with shortness of breath and wheezing (resolving). 3. Microcytic iron-deficiency anemia. 4. Super morbid obesity. 5. Severe dietary noncompliance. 6. Tachycardia. 7. Hypertension. 8. Hypoxemia. 9. Celiac disease with positive IgA Endomysial antibody titer and positive IgA Endomysial antibody. 10. Positive tissue transglutaminase IgA titers. 11. Leukocytosis with granulocytosis. 12. Lactic acidosis, resolving. 13. Uncontrolled cyl-jhghxwv-atwllsomf diabetes mellitus with hyperglycemia and hemoglobin A1c of 9.8. 14. History of hypothyroidism. 15. Proteinuria. 16. Ketonuria. 17. Pyuria. 18. Morbid obesity with elevated body mass index of 38. 19. Persistent hyperglycemia secondary to intravenous steroid. 20. Hypercholesteremia with elevated LDL. 21. History of hyperparathyroidism. 22. Severe hepatic steatosis and severe fatty infiltration of the liver. 23. Prominent left ovary. 24. History of questionable peptic ulcer disease. 25. History of constipation. 26. Hyperlipidemia. 27. Hypomagnesemia. 28. Hypovitaminosis D. 29. Constipation. 30. Insulin requiring diabetes mellitus. 31. Hypophosphatemia and hypokalemia. 32. Most probably metabolic syndrome with insulin resistance. PLAN: At this time, the patient is currently on consult with Gastroenterology, which I have requested a re evaluation for celiac disease, consultation with Infectious Disease regarding lactic acidosis and Pulmonary consultation. Current medications; Mucomyst nebulizer 20% 4 mL every 6 hours to be mixed with DuoNeb nebulizer every 6 hours, Actigall 300 twice a day, Brovana 15 mcg every 12 hours, Claritin 10 mg daily, Colace 100 mg three times a day, folic acid 1 mg daily, Humalog high dose sliding scale coverage, NPH 35 units with breakfast and 35 units with supper, IV Venofer 200 mg IV daily, Lipitor 40 mg daily, magnesium oxide 400 mg twice a day, MiraLax 17 g twice a day, Protonix 40 mg twice a day, Pulmicort nebulizer 0.5 mg every 12 hours, Senokot 8.6 mg daily, Solu-Medrol decreased to 20 mg IV every 12 hours, Synthroid 25 mcg daily, Tessalon Perles 200 three times a day, Tylenol 650 mg p.o. and suppository every 6 hours p.r.n., vitamin B12 at 1000 mcg p.o. daily, Zithromax 250 mg daily started by Infectious Disease, Zofran 4 mg IV every 4 hours p.r.n., incentive spirometry, nasal cannula, LAUREN stocking, out of bed, physical therapy, occupational therapy has been ordered. The patient's further management will be dependent upon the patient's clinical condition, hemodynamic status and as per the patient's response to therapeutic intervention as per the patient's diagnostic test results and as per recommendation by Infectious Disease, Gastroenterology, and Pulmonary. The patient has been updated about her condition, diagnosis, treatment plan, treatment option. The patient has been advised strict weight loss, strict diet controlled, and outpatient followup with Pulmonary and Gastroenterology regarding her celiac disease status. At present, the patient will be continued on the above therapeutic intervention. Once the patient's all the IV medications are switched to p.o., the patient will be considered for discharged home. The patient is advised outpatient medical and Gastroenterology close followup. The patient is advised weight loss, strict diet compliance. The patient has been explained about the complications of uncontrolled diabetes, dietary noncompliance, obesity, hypertension, hypothyroidism, and all the medical condition which the patient has, which she acknowledged and understand. The patient was explained very clearly about diabetic vision loss, diabetic retinopathy, diabetic kidney damage and failure and loss of limb, which she acknowledged and understand. Dictated and electronically signed, not read. Signing off Víctor Fuchs MD. Víctor Fuchs MD
--- NOTE | 2019-01-05 13:34 | PN ---
DATE: 01/05/2019 SUBJECTIVE: The patient is lying in bed comfortable. She denies any abdominal pain, diarrhea, rectal bleeding. PHYSICAL EXAMINATION: VITAL SIGNS: Reveal temperature 98, blood pressure 132/91, heart rate 75. HEENT: Reveal sclerae to be white. Conjunctivae pale. NECK: Supple. CHEST: Reveal some mild wheezing. HEART: Exam reveals a regular rate and rhythm. ABDOMEN: Obese, soft, nontender. EXTREMITIES: Show no edema. LABORATORY DATA: Reveal hemoglobin 8.6, white blood cell count 21.6. Chemistries reveal BUN 16, creatinine 0.7. Celiac serology shows elevated endomysial IgA 1:80, elevated tissue transglutaminase IgA of 12. IMPRESSION: This is a 53-year-old female with anemia, exacerbation of chronic obstructive pulmonary disease with positive tissue transglutaminase IgA as well as endomysial IgA, all suggestive of celiac sprue. This may be the contributing factor to her anemia. RECOMMENDATIONS: 1. I will start the patient on gluten-free diet. I have asked the dietitian to see this patient to help her with this. 2. We will get celiac HLA typing. 3. The patient has been informed to follow up with her ui application developer at [facility] who performed endoscopy within the last 1-2 years. She will need a repeat endoscopy with small bowel biopsies off a gluten-free diet. Leo Payne MD
--- NOTE | 2019-01-06 01:38 | CON ---
DATE: 01/05/2019 LOCATION: The patient is seen in bed, in no acute distress, and was seen earlier today in room 565, bed 2. CHIEF COMPLAINT: Initially with cough and shortness of breath. HISTORY OF PRESENT ILLNESS: This is a 53-year-old female with hypertension, gastric ulcers, GERD, asthma, chronic obstructive lung disease, and chronic respiratory failure, on home O2 therapy. The patient with obesity with BMI of 38 and diabetes mellitus, hypothyroidism and gallbladder polyp, and duodenitis. have a tubal ligation, , orthopedic surgery and repair, ALLERGY TO POLLEN, admitted with cough and shortness of breath and was treated for COPD. REVIEW OF SYSTEMS: Reveals no fevers, no chills, no nausea or vomiting. No chest pain. A 12-point review of systems was performed. PAST MEDICAL HISTORY: Significant for hypertension, gastric ulcer, GERD, asthma, chronic obstructive lung disease, chronic respiratory failure, on home O2 therapy, diabetes mellitus, hypothyroidism, gallbladder polyp, and duodenitis. PAST SURGICAL HISTORY: Significant for tubal ligation and . ALLERGIES: THE PATIENT IS ALLERGIC TO POLLEN. MEDICATIONS AT HOME: Reveals the patient to be on glipizide, metformin, and Claritin. PHYSICAL EXAMINATION: VITAL SIGNS: The patient is seen in bed with a temperature of 98, blood pressure is 130/90, respiratory rate of 18, heart rate was up to 100, and respiratory rate was up to 22. HEENT: Unremarkable. NECK: Supple. LUNGS: Decreased breath sounds. HEART: Normal S1 and S2. ABDOMEN: Soft. LABORATORY DATA: Reveals the patient's white count of 21,600, hemoglobin of 8, BUN of 16, and creatinine of 0.7. Urinalysis is noted. Blood cultures are negative. Urine cultures are negative. CAT scan of the chest and abdomen is negative. Dr. Payne's note is reviewed. Dr. Ruelas's progress note is reviewed. ASSESSMENT AND PLAN: This is a 53-year-old female with systemic inflammatory response syndrome, the patient with chronic obstructive pulmonary disease, the patient with leukocytosis secondary to steroids with normal procalcitonin, negative cultures and negative CAT scan of the chest. The patient is on p.o. Zithromax and Solu-Medrol. We will follow with you. Felice Cheung MD
[2019-01-06] MEDS: Levothyroxine 25 MCG TAB PO SCH (05:40)
[2019-01-06 07:29] LABS: BASO # 0.02 K/mm3 (0.0-2.0); BASO % 0.1 % (0.0-3.0); HEMOGLOBIN 9.1 g/dL (12.0-16.0); LYMPH # 3.5 (1.2-3.4); LYMPH % 17.2 % (22.0-35.0); MEAN CORPUSCULAR HEMOGLOBIN 21.6 pg (25.0-35.0); MEAN CORPUSCULAR HGB CONC 28.4 g/dl (31.0-37.0); MEAN PLATELET VOLUME 10.5 fl (7.0-11.0); MONO # 1.3 (0.1-0.6); MONO % 6.2 % (1.0-6.0); RBC 4.21 10^6/uL (3.5-6.1); WHITE BLOOD COUNT 20.6 10^3/uL (4.5-11.0)
[2019-01-06 07:31] LABS: ALB/GLOB RATIO 1.4 (1.1-1.8); ALBUMIN 3.9 g/dL (3.0-4.8); ALT/SGPT 37 U/L (7-56); AST/SGOT 30 U/L (14-36); BLOOD UREA NITROGEN 21 mg/dL (7-21); CALCIUM 9.3 mg/dL (8.4-10.5); GFR NON-AFRICAN AMERICAN > 60
[2019-01-06 07:43] VITALS: RESP 20
--- NOTE | 2019-01-06 08:04 | PN ---
DATE: 01/06/2019 SUBJECTIVE: The patient appears very comfortable this morning. She is not short of breath at rest. PHYSICAL EXAMINATION: VITAL SIGNS: (Last noted in the computer): Temperature is 97.3, pulse 77, respirations 18, blood pressure 131/85. Oxygen saturation on room air - 96%. HEENT: Normocephalic, atraumatic. No JVD. CARDIOVASCULAR: Positive S1, S2. No S3 gallop. LUNGS: Very minimal/less rhonchi. No wheezing. EXTREMITIES: No clubbing, cyanosis or edema. Calves are nontender to palpation. GASTROINTESTINAL: Abdomen is soft, nontender and nondistended. Bowel sounds are positive. SKIN: No acute rash. NEUROLOGIC: Exam limited at the present time. IMPRESSION: 1. Acute/recurrent bronchitis. 2. Chronic obstructive pulmonary disease. 3. Asthma. 4. Diabetes mellitus. 5. Anemia. PLAN: The patient appears very comfortable this morning. She is not short of breath at rest. She is much less dyspneic on exertion. She states to feeling much, much better overall. On physical exam, her bronchospasm continues to resolve. In addition, the alveolar arterial gradient also continues to resolve. Oxygen saturation on room air is now 96%. I will continue the current nebulizer treatments and change to oral steroids this morning. Inputs by Infectious Disease and Gastroenterology are also noted. Clinical status of the patient is significantly improved - compared to the initial presentation. GI evaluation is ongoing. I will discuss the above with the attending physician. Manas Ruelas MD MTDD
[2019-01-06] MEDS: Budesonide 0.5 mg/2 ml Inhal Susp UD IH SCH (08:29)
[2019-01-06] MEDS: Arformoterol 15 mcg/2 ml Inh Sol IH SCH (08:29)
[2019-01-06] MEDS: Albuterol-Ipratrop 3 mg / 0.5 (3 ml) UD IH SCH ×2 (08:30→13:18)
[2019-01-06] MEDS: Acetylcysteine 20% Inhal Soln (4ml) IH SCH ×2 (08:30→13:17)
[2019-01-06 09:26] LABS: ALB/GLOB RATIO 1.4 (1.1-1.8); ALBUMIN 3.9 g/dL (3.0-4.8); BILIRUBIN,DIRECT 0.3 mg/dL (0.0-0.4)
[2019-01-06] MEDS: Insulin Lispro (HUMAlog) HIGH Coverage SC SCH ×2 (09:57→13:08)
[2019-01-06] MEDS: Insulin Human NPH 1 UNITS/0.01 ML SC SCH (09:57)
[2019-01-06] MEDS: Magnesium Oxide 400 mg Tab UD PO SCH (09:58)
[2019-01-06] MEDS: POLYETHYLENE GLYCOL 3350 17 GM/Dose PACKET PO SCH (09:59)
[2019-01-06] MEDS: Pantoprazole 40 mg EC Tab PO SCH (09:59)
[2019-01-06 16:38] VITALS: BP 126/73; PULSE 78; TEMP 98.5; O2SAT 94
--- NOTE | 2019-01-06 22:59 | PN ---
DATE: 01/06/2019 SUBJECTIVE: The patient is in bed in no acute distress, nontoxic. PHYSICAL EXAMINATION VITAL SIGNS: She was seen early this morning with a temperature of 98, blood pressure is 130/90, respiratory rate of 18. HEENT: Unremarkable. NECK: Supple. LUNGS: Decreased breath sounds HEART: Normal S1 and S2. ABDOMEN: Soft, nontender. LABORATORY DATA: Reveals a white count of 20,000. Chemistries are noted. The patient's creatinine is normal. Procalcitonin is low, less than 0.05 x2. Microbiology is noted. ASSESSMENT AND PLAN: A 53-year-old female who was seen early this morning in room 565, bed 2 and with chronic obstructive lung disease, leukocytosis secondary to steroids, normal procalcitonin, negative cultures, negative CAT scan of the chest. She will complete with p.o. Zithromax. She states she wanted , she wanted to be discharged. We will follow with you. Felice Cheung MD
--- NOTE | 2019-01-09 08:38 | DS ---
FINAL PROGRESS NOTE AND DISCHARGE SUMMARY HISTORY OF PRESENT ILLNESS: The patient was seen and examined in room 565, bed 2. The patient is again seen lying in the bed. During this entire hospitalization, the patient has been mostly seen lying in the bed. On multiple occasions, the patient has hardly been seen sitting up in the chair and ambulating on the floor. The patient states that her wheezing has completely resolved. The patient has some cough which is nonproductive. PHYSICAL EXAMINATION VITAL SIGNS: T-max 98.7, heart rate 72, blood pressure 134/96, respirations 20, O2 sat 96%. HEENT: Head: Normocephalic, atraumatic. HEENT examination shows pink conjunctivae. Anicteric sclerae. No oropharyngeal lesion. NECK: No neck rigidity. CHEST: Kyphosis. LUNGS: Show no audible wheezing. Occasional rhonchi, bilateral upper lung lilly. CARDIOVASCULAR: S1, S2, regular rhythm. ABDOMEN: Morbidly obese, positive bowel sounds. No palpable hepatosplenomegaly. GENITALIA: Female. RECTAL: Deferred. EXTREMITIES: Show no pitting edema, no calf tenderness, no Homans' sign. MUSCULOSKELETAL: Shows an elevated body mass index. NEUROLOGIC: The patient is alert, awake, responsive, is able to move upper and lower extremities without assistance. Gait examination is not tested, because the patient is mostly lying in the bed. Cranial nerves II-XII are intact and limited. DIAGNOSTICS: 01/06; WBC 20.6, hemoglobin and hematocrit 9.1 and 32.0, platelet 229. Sodium 137, potassium 4.3, chloride 102, CO2 of 26, BUN 21, creatinine 0.8, glucose 250, calcium 9.3, phosphorus 2.7, magnesium 1.8. Lactic acid is down to 2.1. LFTs are within normal limits. Urine shows yeast. FINAL IMPRESSION, PLAN AND DISCHARGE DIAGNOSES 1. Acute exacerbation of chronic obstructive pulmonary disease. 2. Acute exacerbation of bronchial asthma and asthmatic bronchitis. 3. Systemic inflammatory response syndrome. 4. Morbid obesity. 5. Dietary noncompliance. 6. Uncontrolled noninsulin-requiring diabetes mellitus with hemoglobin A1c of greater than 9. 7. Steroid-induced leukocytosis. 8. Microcytic iron-deficiency anemia. 9. Uncontrolled diabetes mellitus with hyperglycemia and severe dietary noncompliance. 10. Leukocytosis. 11. Lactic acidosis. 12. Yeast urinary tract infection. 13. Systemic inflammatory response syndrome. 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 15. Hypertension. 16. Hyperlipidemia. 17. History of duodenal ulcer. 18. Microcytic anemia. Plan at this time, the patient has been switched over to p.o. steroids, p.o. antibiotics by the Infectious Disease and Pulmonary. The patient was seen by Gastroenterology. The recommendations were given by the Gastroenterology to the patient in layman's language, which she acknowledged understood. At this time, the patient is to be discharged home on p.o. antibiotic, Zithromax 250 mg daily for 5 more days, Diflucan 100 mg p.o. daily for 7 days. The patient will be discharged on all the medications as per the ambulatory orders. The patient's metformin has been increased to 1000 mg twice a day, Glucotrol is increased to 10 mg twice a day. The patient has been given prednisone tapering 30 mg daily for 5 days, 20 mg daily for 5 days, 10 mg daily for 5 days. The patient is to resume her DuoNeb nebulizer treatment. The patient was also prescribed Protonix 40 mg daily, Diflucan 100 mg daily, Protonix 40 mg daily. The patient is to resume Zestril 2.5 mg daily. The patient is to resume DuoNeb nebulizer. The patient is given a prescription for Zithromax 250 mg daily. The patient is also given prescription for ursodiol 300 mg twice a day. In addition, the patient was advised to follow up within 1 week with the PMD at [place]. The patient was advised to follow up with Gastroenterology at [facility] regarding celiac sprue evaluation. The patient was given a copy of the gluten-free moderate carbohydrate diet. The patient was strictly advised about follow up with PMD, Pulmonary, Dr. Barrera and GI followup at [facility] The patient was advised repeat endoscopy and small bowel biopsy. The patient was advised weight loss of about at least 50 pounds. The patient was advised strict dietary compliance. In addition, the patient was advised outpatient ophthalmology and podiatry followup. All of the above was explained to the patient in layman's language. All questions concerned answered, which she acknowledged understood. Time spent in the entire discharge process 45 minutes. Dictated and electronically signed, not read. Víctor Fuchs MD [facility] # [id number]
== END 2019-01-06 17:39 | disposition home or self-care (01) | DRG 191 ==
LOC: ED 08:49 → ERH 11:07 → 2RNO 14:55 → 5RNO 01-04 06:06
PROVIDERS: ADMIT Internal Medicine; ATTEND Internal Medicine
DX: J44.1 Chronic obstructive pulmonary disease with (acute) exacerbation (principal); J45.901 Unspecified asthma with (acute) exacerbation; E87.2 Acidosis; J96.11 Chronic respiratory failure with hypoxia; B37.49 Other urogenital candidiasis; I10 Essential (primary) hypertension; D50.9 Iron deficiency anemia, unspecified; E83.42 Hypomagnesemia; E03.9 Hypothyroidism, unspecified; R42 Dizziness and giddiness; K29.80 Duodenitis without bleeding; I27.20 Pulmonary hypertension, unspecified; N92.0 Excessive and frequent menstruation with regular cycle; E28.2 Polycystic ovarian syndrome; E09.65 Drug or chemical induced diabetes mellitus with hyperglycemia; T38.0X5A Adverse effect of glucocorticoids and synthetic analogues, initial encounter; K21.9 Gastro-esophageal reflux disease without esophagitis; E66.9 Obesity, unspecified; E88.81 Metabolic syndrome and other insulin resistance; K90.0 Celiac disease; E55.9 Vitamin D deficiency, unspecified; K76.0 Fatty (change of) liver, not elsewhere classified; E78.00 Pure hypercholesterolemia, unspecified; E78.5 Hyperlipidemia, unspecified; D72.829 Elevated white blood cell count, unspecified; K59.00 Constipation, unspecified; Z87.11 Personal history of peptic ulcer disease; Z68.38 Body mass index [BMI] 38.0-38.9, adult; Z99.81 Dependence on supplemental oxygen; Z87.891 Personal history of nicotine dependence; Z91.11 Patient's noncompliance with dietary regimen; Z79.84 Long term (current) use of oral hypoglycemic drugs; Z80.0 Family history of malignant neoplasm of digestive organs